=== PATIENT | male | born 1950 | race Caucasian/White ===

== ENCOUNTER → 2016-07-18 | Outpatient (CLI) | payer MEDICARE, OTHER ==
[2016-07-18 10:48] LABS: CHLORIDE,CL 106 mmol/L (98-110); SODIUM,NA 142 mmol/L (136-146)
== END ==
LOC: MW.CHFP 09:41
PROVIDERS: ATTEND Student in an Organized Health Care Education/Training Program
DX: I10 Essential (primary) hypertension (principal); F41.8 Other specified anxiety disorders; J44.9 Chronic obstructive pulmonary disease, unspecified; Z87.891 Personal history of nicotine dependence
CPT/HCPCS: 36415; 80053; 80061; G0463

== ENCOUNTER 2017-03-10 10:42 | Emergency (ER) | payer MEDICARE, OTHER ==
[2017-03-10] MEDS ORDERED: Sodium Chloride 0.9% 2.5 ML Syringe FLUSH PRN (10:54)
[2017-03-10] MEDS ORDERED: Sodium Chloride 0.9% 10 ML Syringe FLUSH PRN (10:54)
[2017-03-10] MEDS ORDERED: Albuterol/Ipratropium 3.0-0.5 MG/3 ML Neb Soln NEB ONE ×2 (10:57→12:10)
[2017-03-10] MEDS ORDERED: Sodium Chloride 0.9% 1,000 ML IV ONE (10:57)
[2017-03-10] MEDS ORDERED: methylPREDNISolone Sodium Succinate 125 MG/2 ML SDV IVPUSH ONE (11:13)
[2017-03-10 11:53] LABS: CHLORIDE,CL 99 mmol/L (98-110); SODIUM,NA 138 mmol/L (136-146)
--- NOTE | 2017-03-10 11:55 | CR ---
EXAMINATION: Portable chest radiograph. HISTORY: Shortness of breath. FINDINGS: The trachea is midline. The cardiomediastinal silhouette is within normal limits. No pulmonary infilt rates, effusions or pneumothorax. Chronic interstitial prominence and hyperinflation. There is a vagu e subcentimeter nodular right mid to lower lung which is likely present in the prior radiographs. Osseous structures appear unremarkable. IMPRESSION: No acute cardiopulmonary process..
--- NOTE | 2017-03-10 12:44 | EDM.PDOC ---
ED HPI GENERAL MEDICAL PROBLEM - General Chief Complaint: Respiratory Problem Stated Complaint: BREATHING ISSUES Time Seen by Provider: 03/10/17 10:59 Source of Information: Reports: Patient, Family History Limitations: Reports: No Limitations - History of Present Illness INITIAL COMMENTS - FREE TEXT/NARRATIVE: HISTORY AND PHYSICAL: 67-year-old male presenting with COPD exacerbation History of Present Illness: []Today is Monday he was at his providers and received an injection or worsening of his breathing. He states he is not improved since then and today is worse. Review of Systems: As per history of present illness and below otherwise all systems reviewed and negative. Past medical history: As per history of present illness and as reviewed below otherwise noncontributory. Surgical history: As per history of present illness and as reviewed below otherwise noncontributory. Social history: No reported history of drug or alcohol abuse. Family history: As per history of present illness and as reviewed below otherwise noncontributory. Physical exam: Alert and oriented male whose mouth per slip breathing. Using his abdominal muscles to help.. Is able to speak in about 3 word sentences. He has been short of breath is present. HEENT: Atraumatic, normocehpalic, pupils reactive, negative for conjunctival pallor or scleral icterus, mucous membranes moist, throat clear, neck supple, nontender, trachea midline. Lungs: Wheezing on auscultation, breath sounds equal bilaterally, chest non tender. Poor inspiratory expiratory effort is appreciated. Heart: S1S2, regular, negative for clicks, rubs, or JVD. Abdomen: Soft, nondistended, nontender. Negative for masses or hepatossplenmegaly. Negative for costovertebral tenderness. Pelvis: Stable nontender. Genitourinary: Deferred. Rectal: Deferred Extremities: Atraumatic, negative for cords or calf pain. Neurovascular unremarkable. Neuro: Awake, alert, oriented. Cranial nerves II through XII unremarkable. Cerebellum unremarkable. Motor and sensory unremarkable throughout. Exam nonfocal. Patient has improved with the 2 nebulizer treatments or calf and in the Solu- Medrol IV. Discussed COPD and it's indications the progression of this disease. Discussed with your primary care provider perhaps pulmonary rehabilitation may be of benefit Patient is quite shaky after his 2 DuoNeb and is reluctant to take albuterol at home trial with the Xopenex Diagnostics: [Chest x-ray CBC CMP] Therapeutics: [IV fluids 1 L Solu-Medrol 125 IV DuoNeb 2] Impression: [COPD exacerbation] Plan: []Discharged home Xopenex per prescription Nebulizer machine Follow-up as scheduled with your primary care provider March 21 Definitive disposition and diagnosis as appropriate pending reevaluation and review of above. Onset: Gradual Duration: Day(s): Location: Reports: Chest - Related Data Allergies Allergy/AdvReac Type Severity Reaction Status Date / Time clarithromycin [From Biaxin] Allergy Other Verified 03/10/17 10:51 codeine Allergy Other Verified 03/10/17 10:51 levofloxacin [From Levaquin] Allergy Other Verified 03/10/17 10:51 lisinopril Allergy Other Verified 03/10/17 10:51 morphine Allergy Other Verified 03/10/17 10:51 Home Meds: Home Meds Fluticasone/Salmeterol [Advair Hfa 230-21 Mcg Inhaler] 2 puff IN DAILY 03/10/17 [History] LORazepam [Ativan] 0.5 mg PO BID 03/10/17 [History] Levalbuterol HCl [Xopenex] 0.63 mg NEB Q4HRRT #1 box 03/10/17 [Rx] Losartan [Cozaar] 50 mg PO DAILY 03/10/17 [History] PARoxetine HCl [Paroxetine HCl] 20 mg PO TID 03/10/17 [History] Past Medical History Respiratory History: Reports: COPD Psychiatric History: Reports: Anxiety Social & Family History - Family History Family Medical History: Noncontributory - Tobacco Use Smoking Status *Q: Current Every Day Smoker Years of Tobacco use: 45 Packs/Tins Daily: 0.5 Second Hand Smoke Exposure: Yes - Caffeine Use Caffeine Use: Reports: Energy Drinks - Recreational Drug Use Recreational Drug Use: No ED ROS GENERAL - Review of Systems Review Of Systems: ROS reveals no pertinent complaints other than HPI. ED EXAM, GENERAL - Physical Exam Exam: See Below (See dictation) EKG INTERPRETATION EKG Date: 03/10/17 Rhythm: Other (Sinus tachycardia) Course - Vital Signs Last Recorded V/S: Last Vital Signs Temp 36.2 C 03/10/17 10:57 Pulse 133 H 03/10/17 10:57 Resp 22 H 03/10/17 11:26 BP 174/110 H 03/10/17 11:26 Pulse Ox 95 03/10/17 11:26 - Orders/Labs/Meds Orders: Active Orders 24 hr Category Date Time Status Cardiac Monitoring [RC] . DIRECTED Care 03/10/17 10:54 Active EKG Documentation Completion [RC] STAT Care 03/10/17 10:54 Active Oxygen Therapy, ED [RC] ASDIRECTED Care 03/10/17 10:54 Active RT Aerosol Therapy [RC] ASDIRECTED Care 03/10/17 10:57 Active RT Aerosol Therapy [RC] ASDIRECTED Care 03/10/17 12:11 Active CULTURE BLOOD [BC] Stat Lab 03/10/17 11:14 Received CULTURE BLOOD [BC] Stat Lab 03/10/17 11:49 Received Sodium Chloride 0.9% [Saline Flush] Med 03/10/17 10:54 Active 10 ml FLUSH ASDIRECTED PRN Sodium Chloride 0.9% [Saline Flush] Med 03/10/17 10:54 Active 2.5 ml FLUSH ASDIRECTED PRN Blood Culture x2 Reflex Set [OM.PC] Stat Oth 03/10/17 10:55 Ordered Saline Lock Insert [OM.PC] Stat Oth 03/10/17 10:54 Ordered Medication Orders Sodium Chloride (Saline Flush) 10 ml FLUSH ASDIRECTED PRN PRN Reason: Keep Vein Open Sodium Chloride (Saline Flush) 2.5 ml FLUSH ASDIRECTED PRN PRN Reason: Keep Vein Open Labs: Laboratory Tests 03/10/17 03/10/17 Range/Units 11:14 11:14 WBC 9.89 (4.0-11.0) K/uL RBC 5.20 (4.50-5.90) M/uL Hgb 16.7 (13.0-17.0) g/dL Hct 49.1 (38.0-50.0) % MCV 94.4 (80.0-98.0) fL MCH 32.1 H (27.0-32.0) pg MCHC 34.0 (31.0-37.0) g/dL RDW Std Deviation 46.8 (28.0-62.0) fl RDW Coeff of Charly 14 (11.0-15.0) % Plt Count 371 (150-400) K/uL MPV 10.10 (7.40-12.00) fL Neut % (Auto) 75.1 (48.0-80.0) % Lymph % (Auto) 9.0 L (16.0-40.0) % Steele % (Auto) 15.0 (0.0-15.0) % Eos % (Auto) 0.7 (0.0-7.0) % Baso % (Auto) 0.2 (0.0-1.5) % Neut # (Auto) 7.4 H (1.4-5.7) K/uL Lymph # (Auto) 0.9 (0.6-2.4) K/uL Steele # (Auto) 1.5 H (0.0-0.8) K/uL Eos # (Auto) 0.1 (0.0-0.7) K/uL Baso # (Auto) 0.0 (0.0-0.1) K/uL Nucleated RBC % 0.0 /100WBC Nucleated RBCs # 0 K/uL Sodium 138 (136-146) mmol/L Potassium 4.1 (3.5-5.1) mmol/L Chloride 99 (98-110) mmol/L Carbon Dioxide 27 (21-31) mmol/L BUN 20 (6.0-23.0) mg/dL Creatinine 1.1 (0.6-1.5) mg/dL Est Cr Clr Drug Dosing TNP Estimated GFR (MDRD) > 60.0 ml/min Glucose 165 H (60-110) mg/dL Calcium 9.8 (8.8-10.8) mg/dL Total Bilirubin 0.5 (0.1-1.5) mg/dL AST 22 (5-40) IU/L ALT 19 (8-54) IU/L Alkaline Phosphatase 48 (40-150) Troponin I < 0.10 (0.0-0.29) NG/ML Total Protein 7.6 (6.0-8.0) g/dL Albumin 4.2 (3.4-4.8) g/dL Globulin 3.4 (2.0-3.5) g/dL Albumin/Globulin Ratio 1.2 L (1.3-2.8) Meds: Medications Generic Name Dose Route Start Last Admin Trade Name Freq PRN Reason Stop Dose Admin Sodium Chloride 10 ml 11/24/17 10:54 Saline Flush FLUSH ASDIRECTED PRN Keep Vein Open Sodium Chloride 2.5 ml 03/10/17 10:54 Saline Flush FLUSH ASDIRECTED PRN Keep Vein Open Discontinued Medications Generic Name Dose Route Start Last Admin Trade Name Freq PRN Reason Stop Dose Admin Albuterol/Ipratropium 3 ml 03/10/17 10:57 03/10/17 11:10 Duoneb 3.0-0.5 Mg/3 Ml NEB 03/10/17 10:58 3 ml ONETIME ONE Administration Albuterol/Ipratropium 3 ml 03/10/17 12:10 03/10/17 12:27 Duoneb 3.0-0.5 Mg/3 Ml NEB 03/10/17 12:11 3 ml ONETIME ONE Administration Sodium Chloride 1,000 mls @ 999 mls/hr 03/10/17 10:57 03/10/17 11:20 Normal Saline IV 03/10/17 11:57 999 mls/hr STAT ONE Administration Methylprednisolone Sodium Succinate 125 mg 03/10/17 11:13 03/10/17 11:52 Solu-Medrol IVPUSH 03/10/17 11:14 125 mg ONETIME ONE Administration Departure - Departure Time of Disposition: 12:43 Disposition: Home, Self-Care 01 Condition: Good Clinical Impression: COPD with exacerbation - Discharge Information Prescriptions: Levalbuterol HCl [Xopenex] 0.63 mg NEB Q4HRRT #1 box Referrals: PCP,Unknown [Primary Care Provider] - Additional Instructions: The following information is given to patients seen in the emergency department who are being discharged to home. This information is to outline your options for follow-up care. We provide all patients seen in our emergency department with a follow-up referral. The need for follow-up, as well as the timing and circumstances, are variable depending upon the specifics of your emergency department visit. If you don't have a primary care physician on staff, we will provide you with a referral. We always advise you to contact your personal physician following an emergency department visit to inform them of the circumstance of the visit and for follow-up with them and/or the need for any referrals to a consulting specialist. The emergency department will also refer you to a specialist when appropriate. This referral assures that you have the opportunity for followup care with a specialist. All of these measure are taken in an effort to provide you with optimal care, which includes your followup. Under all circumstances we always encourage you to contact your private physician who remains a resource for coordinating your care. When calling for followup care, please make the office aware that this follow-up is from your recent emergency room visit. If for any reason you are refused follow-up, please contact the [facility] emergency department at and asked to speak to the emergency department charge nurse. Prescription for has been electronically sent for Xopenex to the service drug Prescription for nebulizer machine has been faxed to [facility] need to pick this up Follow up as scheduled with your primary care provider Discussed with your primary care provider pulmonary rehabilitation services - My Orders Last 24 Hours: My Active Orders 03/10/17 10:54 Cardiac Monitoring [RC] . DIRECTED EKG Documentation Completion [RC] STAT Oxygen Therapy, ED [RC] ASDIRECTED Sodium Chloride 0.9% [Saline Flush] 10 ml FLUSH ASDIRECTED PRN Sodium Chloride 0.9% [Saline Flush] 2.5 ml FLUSH ASDIRECTED PRN Saline Lock Insert [OM.PC] Stat 03/10/17 10:55 Blood Culture x2 Reflex Set [OM.PC] Stat 03/10/17 10:57 RT Aerosol Therapy [RC] ASDIRECTED 03/10/17 11:14 CULTURE BLOOD [BC] Stat 03/10/17 11:49 CULTURE BLOOD [BC] Stat 03/10/17 12:11 RT Aerosol Therapy [RC] ASDIRECTED - Assessment/Plan Last 24 Hours: My Active Orders 03/10/17 10:54 Cardiac Monitoring [RC] . DIRECTED EKG Documentation Completion [RC] STAT Oxygen Therapy, ED [RC] ASDIRECTED Sodium Chloride 0.9% [Saline Flush] 10 ml FLUSH ASDIRECTED PRN Sodium Chloride 0.9% [Saline Flush] 2.5 ml FLUSH ASDIRECTED PRN Saline Lock Insert [OM.PC] Stat 03/10/17 10:55 Blood Culture x2 Reflex Set [OM.PC] Stat 03/10/17 10:57 RT Aerosol Therapy [RC] ASDIRECTED 03/10/17 11:14 CULTURE BLOOD [BC] Stat 03/10/17 11:49 CULTURE BLOOD [BC] Stat 03/10/17 12:11 RT Aerosol Therapy [RC] ASDIRECTED
== END 2017-03-10 13:05 | disposition home or self-care (01) ==
LOC: MW.ED 10:42
DX: J44.1 Chronic obstructive pulmonary disease with (acute) exacerbation (principal); F41.9 Anxiety disorder, unspecified; F17.210 Nicotine dependence, cigarettes, uncomplicated; Z79.899 Other long term (current) drug therapy; Z88.1 Allergy status to other antibiotic agents; Z88.5 Allergy status to narcotic agent; Z88.8 Allergy status to other drugs, medicaments and biological substances
CPT/HCPCS: 36415; 71010; 80053; 84484; 85025; 87040; 93005; 94640; 96361; 96374; 99285; J2930; J7040; 87077; 87186; 99283

== ENCOUNTER 2017-03-11 12:53 | Emergency (ER) | payer MEDICARE, OTHER ==
[2017-03-11] MEDS ORDERED: Meclizine 25 MG Tab PO ONE (13:02)
[2017-03-11] MEDS ORDERED: Ondansetron 4 MG/2 ML SDV IVPUSH ONE (13:02)
[2017-03-11] MEDS ORDERED: Sodium Chloride 0.9% 10 ML Syringe FLUSH PRN (14:08)
[2017-03-11] MEDS ORDERED: Levofloxacin/Dextrose 5%-Water 750 MG in Premix Bag 1 BAG IV ONE (14:08)
[2017-03-11] MEDS ORDERED: Sodium Chloride 0.9% 2.5 ML Syringe FLUSH PRN (14:08)
--- NOTE | 2017-03-11 14:09 | EDM.PDOC ---
ED HPI GENERAL MEDICAL PROBLEM - General Chief Complaint: Respiratory Problem Stated Complaint: UNK Time Seen by Provider: 03/11/17 13:13 Source of Information: Reports: Patient History Limitations: Reports: No Limitations - History of Present Illness INITIAL COMMENTS - FREE TEXT/NARRATIVE: HISTORY AND PHYSICAL: []67-year-old male presenting with lab results History of Present Illness: []Patient was called due to positive gram cocci in his blood culture he is returning for blood work to be reevaluated Review of Systems: As per history of present illness and below otherwise all systems reviewed and negative. Past medical history: As per history of present illness and as reviewed below otherwise noncontributory. Surgical history: As per history of present illness and as reviewed below otherwise noncontributory. Social history: No reported history of drug or alcohol abuse. Family history: As per history of present illness and as reviewed below otherwise noncontributory. Physical exam: Alert and active male who has COPD exacerbation yesterday has improved with the nebulizer that he was sent home with. His abdomen able to answer questions in full sentences without severe shortness of breath. HEENT: Atraumatic, normocehpalic, pupils reactive, negative for conjunctival pallor or scleral icterus, mucous membranes moist, throat clear, neck supple, nontender, trachea midline. Lungs: Clear to auscultation, breath sounds equal bilaterally, chest non tender. Heart: S1S2, regular, negative for clicks, rubs, or JVD. Abdomen: Soft, nondistended, nontender. Negative for masses or hepatossplenmegaly. Negative for costovertebral tenderness. Pelvis: Stable nontender. Genitourinary: Deferred. Rectal: Deferred Extremities: Atraumatic, negative for cords or calf pain. Neurovascular unremarkable. Neuro: Awake, alert, oriented. Cranial nerves II through XII unremarkable. Cerebellum unremarkable. Motor and sensory unremarkable throughout. Exam nonfocal. Patient has just elevated white count of 15.5. Have discussed this case with Dr. Hull and he also recommends that patient be observed. Discussion of this case occurred with the hospitalist who does not agree that the patient should be kept in the hospital and can be managed on an outpatient basis. She has suggested the Bactrim DS twice daily a week. Patient has preferred to be treated on outpatient basis. Diagnostics: [CBC CMP lactic acid repeat blood cultures 2] Therapeutics: [IV fluid Vancomycin ] Impression: [Bacteremia COPD ] Plan: Discharged to home Bactrim DS 1 twice a day 7 days Follow-up in 2 days with your primary care provider for reevaluation If worsening of symptoms occurs prior to your being reevaluated return to the emergency department[] Definitive disposition and diagnosis as appropriate pending reevaluation and review of above. Onset: Gradual Duration: Day(s): Location: Reports: Chest - Related Data Allergies Allergy/AdvReac Type Severity Reaction Status Date / Time clarithromycin [From Biaxin] Allergy Other Verified 03/11/17 13:05 codeine Allergy Other Verified 03/11/17 13:05 levofloxacin [From Levaquin] Allergy Other Verified 03/11/17 13:05 lisinopril Allergy Other Verified 03/11/17 13:05 morphine Allergy Other Verified 03/11/17 13:05 Home Meds: Home Meds Fluticasone/Salmeterol [Advair Hfa 230-21 Mcg Inhaler] 2 puff IN DAILY 03/10/17 [History] Levalbuterol HCl [Xopenex] 0.63 mg NEB Q4HRRT #1 box 03/10/17 [Rx] Losartan [Cozaar] 50 mg PO BID 03/10/17 [History] PARoxetine HCl [Paroxetine HCl] 20 mg PO TID 03/10/17 [History] LORazepam [Ativan] 1 mg PO BID 03/11/17 [History] Sulfamethoxazole/Trimethoprim [Bactrim Ds Tablet] 1 each PO BID #14 tablet 03/11 [Rx] Past Medical History Respiratory History: Reports: COPD Psychiatric History: Reports: Anxiety Social & Family History - Family History Family Medical History: Noncontributory - Tobacco Use Smoking Status *Q: Former Smoker Years of Tobacco use: 45 Packs/Tins Daily: 0.5 Used Tobacco, but Quit: Yes Month Tobacco Last Used: 2012 Second Hand Smoke Exposure: Yes - Caffeine Use Caffeine Use: Reports: None - Recreational Drug Use Recreational Drug Use: No ED ROS GENERAL - Review of Systems Review Of Systems: ROS reveals no pertinent complaints other than HPI. ED EXAM, GENERAL - Physical Exam Exam: See Below (see dictation) Course - Vital Signs Last Recorded V/S: Last Vital Signs Temp 36.6 C 03/11/17 13:00 Pulse 103 H 03/11/17 15:09 Resp 18 03/11/17 15:09 BP 140/102 H 03/11/17 16:02 Pulse Ox 96 03/11/17 15:09 - Orders/Labs/Meds Orders: Active Orders 24 hr Category Date Time Status EKG Documentation Completion [RC] STAT Care 03/11/17 13:01 Inactive CULTURE BLOOD [BC] Stat Lab 03/11/17 14:43 Results CULTURE BLOOD [BC] Stat Lab 03/11/17 14:48 Received Sodium Chloride 0.9% [Normal Saline] 1,000 ml Med 03/11/17 15:52 Active IV NOW Sodium Chloride 0.9% [Normal Saline] 500 ml Med 03/11/17 15:49 Active IV NOW Sodium Chloride 0.9% [Saline Flush] Med 03/11/17 14:08 Active 10 ml FLUSH ASDIRECTED PRN Sodium Chloride 0.9% [Saline Flush] Med 03/11/17 14:08 Active 2.5 ml FLUSH ASDIRECTED PRN Blood Culture x2 Reflex Set [OM.PC] Stat Oth 03/11/17 14:33 Ordered Saline Lock Insert [OM.PC] Stat Oth 03/11/17 14:08 Ordered Medication Orders Sodium Chloride (Normal Saline) 500 mls @ 125 mls/hr IV NOW STA Stop: 03/11/17 19:48 Last Admin: 03/11/17 15:53 Dose: Not Given Sodium Chloride (Normal Saline) 1,000 mls @ 125 mls/hr IV NOW STA Stop: 03/11/17 23:51 Last Admin: 03/11/17 15:48 Dose: 125 mls/hr Sodium Chloride (Saline Flush) 10 ml FLUSH ASDIRECTED PRN PRN Reason: Keep Vein Open Sodium Chloride (Saline Flush) 2.5 ml FLUSH ASDIRECTED PRN PRN Reason: Keep Vein Open Labs: Laboratory Tests 03/11/17 03/11/17 03/11/17 Range/Units 13:13 13:13 13:13 WBC 15.53 H (4.0-11.0) K/uL RBC 4.82 (4.50-5.90) M/uL Hgb 15.4 (13.0-17.0) g/dL Hct 46.0 (38.0-50.0) % MCV 95.4 (80.0-98.0) fL MCH 32.0 (27.0-32.0) pg MCHC 33.5 (31.0-37.0) g/dL RDW Std Deviation 46.5 (28.0-62.0) fl RDW Coeff of Charly 13 (11.0-15.0) % Plt Count 381 (150-400) K/uL MPV 10.10 (7.40-12.00) fL Neut % (Auto) 77.2 (48.0-80.0) % Lymph % (Auto) 12.0 L (16.0-40.0) % [place] % (Auto) 10.2 (0.0-15.0) % Eos % (Auto) 0.5 (0.0-7.0) % Baso % (Auto) 0.1 (0.0-1.5) % Neut # (Auto) 12.0 H (1.4-5.7) K/uL Lymph # (Auto) 1.9 (0.6-2.4) K/uL [place] # (Auto) 1.6 H (0.0-0.8) K/uL Eos # (Auto) 0.1 (0.0-0.7) K/uL Baso # (Auto) 0.0 (0.0-0.1) K/uL Nucleated RBC % 0.0 /100WBC Nucleated RBCs # 0 K/uL INR 0.94 (0.86-1.11) D-Dimer, Quantitative 0.29 (0.0-0.52) mg/LFEU Lactate (0.20-2.00) mmol/L Sodium (136-146) mmol/L Potassium (3.5-5.1) mmol/L Chloride (98-110) mmol/L Carbon Dioxide (21-31) mmol/L BUN (6.0-23.0) mg/dL Creatinine (0.6-1.5) mg/dL Est Cr Clr Drug Dosing mL/min Estimated GFR (MDRD) ml/min Glucose (60-110) mg/dL Calcium (8.8-10.8) mg/dL Total Bilirubin (0.1-1.5) mg/dL AST (5-40) IU/L ALT (8-54) IU/L Alkaline Phosphatase (40-150) Troponin I < 0.10 (0.0-0.29) NG/ML Total Protein (6.0-8.0) g/dL Albumin (3.4-4.8) g/dL Globulin (2.0-3.5) g/dL Albumin/Globulin Ratio (1.3-2.8) 03/11/17 03/11/17 Range/Units 13:13 13:13 WBC (4.0-11.0) K/uL RBC (4.50-5.90) M/uL Hgb (13.0-17.0) g/dL Hct (38.0-50.0) % MCV (80.0-98.0) fL MCH (27.0-32.0) pg MCHC (31.0-37.0) g/dL RDW Std Deviation (28.0-62.0) fl RDW Coeff of Charly (11.0-15.0) % Plt Count (150-400) K/uL MPV (7.40-12.00) fL Neut % (Auto) (48.0-80.0) % Lymph % (Auto) (16.0-40.0) % [place] % (Auto) (0.0-15.0) % Eos % (Auto) (0.0-7.0) % Baso % (Auto) (0.0-1.5) % Neut # (Auto) (1.4-5.7) K/uL Lymph # (Auto) (0.6-2.4) K/uL [place] # (Auto) (0.0-0.8) K/uL Eos # (Auto) (0.0-0.7) K/uL Baso # (Auto) (0.0-0.1) K/uL Nucleated RBC % /100WBC Nucleated RBCs # K/uL INR (0.86-1.11) D-Dimer, Quantitative (0.0-0.52) mg/LFEU Lactate 1.7 (0.20-2.00) mmol/L Sodium 137 (136-146) mmol/L Potassium 3.8 (3.5-5.1) mmol/L Chloride 101 (98-110) mmol/L Carbon Dioxide 26 (21-31) mmol/L BUN 20 (6.0-23.0) mg/dL Creatinine 1.0 (0.6-1.5) mg/dL Est Cr Clr Drug Dosing 73.51 mL/min Estimated GFR (MDRD) > 60.0 ml/min Glucose 131 H (60-110) mg/dL Calcium 9.3 (8.8-10.8) mg/dL Total Bilirubin 0.3 (0.1-1.5) mg/dL AST 21 (5-40) IU/L ALT 23 (8-54) IU/L Alkaline Phosphatase 40 (40-150) Troponin I (0.0-0.29) NG/ML Total Protein 7.0 (6.0-8.0) g/dL Albumin 3.9 (3.4-4.8) g/dL Globulin 3.1 (2.0-3.5) g/dL Albumin/Globulin Ratio 1.3 (1.3-2.8) Meds: Medications Generic Name Dose Route Start Last Admin Trade Name Freq PRN Reason Stop Dose Admin Sodium Chloride 500 mls @ 125 mls/hr 03/11/17 15:49 03/11/17 15:53 Normal Saline IV 03/11/17 19:48 Not Given NOW STA Sodium Chloride 1,000 mls @ 125 mls/hr 03/11/17 15:52 03/11/17 15:48 Normal Saline IV 03/11/17 23:51 125 mls/hr NOW STA Administration Sodium Chloride 10 ml 03/11/17 14:08 Saline Flush FLUSH ASDIRECTED PRN Keep Vein Open Sodium Chloride 2.5 ml 03/11/17 14:08 Saline Flush FLUSH ASDIRECTED PRN Keep Vein Open Discontinued Medications Generic Name Dose Route Start Last Admin Trade Name Freq PRN Reason Stop Dose Admin Levofloxacin/Dextrose 750 mg/ 150 mls @ 100 mls/hr 03/11/17 14:08 Premix IV 03/11/17 15:37 ONETIME ONE Piperacillin Sod/Tazobactam 50 mls @ 100 mls/hr 03/11/17 14:36 03/11/17 15:08 Sod 3.375 gm/ Sodium Chloride IV 03/11/17 15:05 100 mls/hr ONETIME ONE Administration Vancomycin HCl 1 gm/ Sodium 250 mls @ 250 mls/hr 03/11/17 14:47 03/11/17 15: 47 Chloride IV 03/11/17 15:46 250 mls/hr ONETIME ONE Administration Sodium Chloride 1,000 mls @ 999 mls/hr 03/11/17 14:47 03/11/17 14:58 Normal Saline IV 03/11/17 15:47 999 mls/hr STAT ONE Administration Lorazepam 1 mg 03/11/17 15:49 03/11/17 15:56 Ativan PO 03/11/17 15:50 1 mg ONETIME ONE Administration Losartan Potassium 50 mg 03/11/17 15:43 03/11/17 16:02 Cozaar PO 03/11/17 15:44 50 mg ONETIME ONE Administration Departure - Departure Time of Disposition: 16:10 Disposition: Home, Self-Care 01 Condition: Good Clinical Impression: Bacteremia COPD (chronic obstructive pulmonary disease) Qualifiers: COPD type: chronic bronchitis - Discharge Information Prescriptions: Sulfamethoxazole/Trimethoprim [Bactrim Ds Tablet] 1 each PO BID #14 tablet Referrals: PCP,Unknown [Primary Care Provider] - Forms: ED Department Discharge Additional Instructions: The following information is given to patients seen in the emergency department who are being discharged to home. This information is to outline your options for follow-up care. We provide all patients seen in our emergency department with a follow-up referral. The need for follow-up, as well as the timing and circumstances, are variable depending upon the specifics of your emergency department visit. If you don't have a primary care physician on staff, we will provide you with a referral. We always advise you to contact your personal physician following an emergency department visit to inform them of the circumstance of the visit and for follow-up with them and/or the need for any referrals to a consulting specialist. The emergency department will also refer you to a specialist when appropriate. This referral assures that you have the opportunity for followup care with a specialist. All of these measure are taken in an effort to provide you with optimal care, which includes your followup. Under all circumstances we always encourage you to contact your private physician who remains a resource for coordinating your care. When calling for followup care, please make the office aware that this follow-up is from your recent emergency room visit. If for any reason you are refused follow-up, please contact the [facility] emergency department at and asked to speak to the emergency department charge nurse. Been given a prescription for Bactrim DS 1 tablet twice a day for the next week He will need to be followed up in the next 2 days by her primary care provider Call Monday and say he was seen in the emergency room and needs reevaluation Worsening of symptoms and need to be reevaluated emergency room if this occurs before your reevaluation appointment - My Orders Last 24 Hours: My Active Orders 03/11/17 14:08 Sodium Chloride 0.9% [Saline Flush] 10 ml FLUSH ASDIRECTED PRN Sodium Chloride 0.9% [Saline Flush] 2.5 ml FLUSH ASDIRECTED PRN Saline Lock Insert [OM.PC] Stat 03/11/17 14:33 Blood Culture x2 Reflex Set [OM.PC] Stat 03/11/17 14:43 CULTURE BLOOD [BC] Stat 03/11/17 14:48 CULTURE BLOOD [BC] Stat 03/11/17 15:49 Sodium Chloride 0.9% [Normal Saline] 500 ml IV NOW 03/11/17 15:52 Sodium Chloride 0.9% [Normal Saline] 1,000 ml IV NOW - Assessment/Plan Last 24 Hours: My Active Orders 03/11/17 14:08 Sodium Chloride 0.9% [Saline Flush] 10 ml FLUSH ASDIRECTED PRN Sodium Chloride 0.9% [Saline Flush] 2.5 ml FLUSH ASDIRECTED PRN Saline Lock Insert [OM.PC] Stat 03/11/17 14:33 Blood Culture x2 Reflex Set [OM.PC] Stat 03/11/17 14:43 CULTURE BLOOD [BC] Stat 03/11/17 14:48 CULTURE BLOOD [BC] Stat 03/11/17 15:49 Sodium Chloride 0.9% [Normal Saline] 500 ml IV NOW 03/11/17 15:52 Sodium Chloride 0.9% [Normal Saline] 1,000 ml IV NOW
[2017-03-11 14:15] LABS: CHLORIDE,CL 101 mmol/L (98-110); SODIUM,NA 137 mmol/L (136-146)
[2017-03-11] MEDS ORDERED: Piperacillin/Tazobactam 3.375 GM in Sodium Chloride 0.9% 50 ML IV ONE (14:36)
[2017-03-11] MEDS ORDERED: Sodium Chloride 0.9% 1,000 ML IV ONE ×2 (14:47→15:43)
[2017-03-11] MEDS ORDERED: Losartan 50 MG Tab PO ONE (15:43)
[2017-03-11] MEDS ORDERED: LORazepam 1 MG Tab PO ONE (15:49)
[2017-03-11] MEDS ORDERED: Sodium Chloride 0.9% 500 ML IV STA (15:49)
[2017-03-11] MEDS ORDERED: Sodium Chloride 0.9% 1,000 ML IV STA (15:52)
== END 2017-03-11 17:28 | disposition home or self-care (01) ==
LOC: MW.ED 12:53
DX: R78.81 Bacteremia (principal); J44.9 Chronic obstructive pulmonary disease, unspecified; Z88.5 Allergy status to narcotic agent; Z88.1 Allergy status to other antibiotic agents; Z87.891 Personal history of nicotine dependence; Z79.899 Other long term (current) drug therapy
CPT/HCPCS: 36415; 80053; 83605; 84484; 85025; 85379; 85610; 87040; 96365; 96367; 99284; A9270; J2543; J3370; J7040; J7050; 99282

== ENCOUNTER 2017-07-18 14:53 | Emergency (ER) | payer MEDICARE, OTHER ==
--- NOTE | 2017-07-18 15:23 | EDM.PDOC ---
ED HPI GENERAL MEDICAL PROBLEM - General Chief Complaint: Cardiovascular Problem Stated Complaint: SHORTNESS OF BREATH, RACING HEART Time Seen by Provider: 07/18/17 15:00 Source of Information: Reports: Patient History Limitations: Reports: No Limitations - History of Present Illness INITIAL COMMENTS - FREE TEXT/NARRATIVE: HISTORY AND PHYSICAL: History of present illness: [Patient comes to the emergency room complaining of not feeling well for the past week. Feels dizzy, heart racing, cough, body aches. Had a new furnace put in at the end of April and questions if his symptoms may be related. His also presents today with similar symptoms. He is been recently diagnosed with lung cancer and has been undergoing radiation treatments under the care of Dr. Hollingsworth. Long history of COPD and he continues to smoke a pack a day. No fever or chills. Denies pain in his chest. Complains of more labored and difficulty breathing than usual. No new or worsening cough. Denies abdominal pain nausea and vomiting. No change to bowel or bladder. Denies swelling in his feet and lower legs. No change with ambulation. Denies confusion. Follows regularly with Dr. Meadows.] Review of systems: As per history of present illness and below otherwise all systems reviewed and negative. Past medical history: As per history of present illness and as reviewed below otherwise noncontributory. Surgical history: As per history of present illness and as reviewed below otherwise noncontributory. Social history: No reported history of drug or alcohol abuse. Family history: As per history of present illness and as reviewed below otherwise noncontributory. Physical exam: Gen.: Well-developed male in no acute distress. Smells heavily of cigarette smoke. HEENT: Atraumatic, normocephalic. Oral mucous membranes are pink and slightly dry. Neck supple, no lymphadenopathy. No JVD noted. Lungs: Wheezing is appreciated throughout all lung [place], breath sounds equal bilaterally. Heart: S1S2, regular rhythm, rate 130. Abdomen: Bowel sounds are normoactive throughout. Soft, nondistended, nontender. Negative for masses, guarding and rebound. Negative for costovertebral tenderness. Pelvis: Stable nontender. Genitourinary: Deferred. Rectal: Deferred. Extremities: Atraumatic, negative for cords or calf pain. Swelling or cyanosis to feet or lower legs. Neurovascular unremarkable. Neuro: Awake, alert, oriented. Motor and sensory unremarkable throughout. Exam nonfocal. Psych: Appears mildly anxious. Diagnostics: [CBC, CMP, UA, carboxyhemoglobin, urine drug screen, troponin, influenza swab, chest x-ray, EKG] Therapeutics: [1 liter LR at 500mL/hour] Impression: [tachycardia COPD lung CA] Plan: [EKG shows sinus tachycardia with a rate of 121. No acute findings or ST changes. Discussed with patient that his lab results are completely unremarkable. He states that he is out of his anti-anxiety medication that is prescribed by his PCP. He's been advised to take this medication when his heart rate is high. Thinks that he may have run out early. Encouraged him to call Dr. Meadows's office to discuss. ] Definitive disposition and diagnosis as appropriate pending reevaluation and review of above. - Related Data Allergies Allergy/AdvReac Type Severity Reaction Status Date / Time clarithromycin [From Biaxin] Allergy Other Verified 07/18/17 15:12 codeine Allergy Other Verified 07/18/17 15:12 levofloxacin [From Levaquin] Allergy Other Verified 07/18/17 15:12 lisinopril Allergy Other Verified 07/18/17 15:12 morphine Allergy Other Verified 07/18/17 15:12 Home Meds: Home Meds Levalbuterol HCl [Xopenex] 0.63 mg NEB Q4HRRT #1 box 03/10/17 [Rx] Losartan [Cozaar] 50 mg PO BID 03/10/17 [History] PARoxetine HCl [Paroxetine HCl] 20 mg PO TID 03/10/17 [History] Acetaminophen/HYDROcodone [[place] 325-5 MG] 1 tab PO Q4HR PRN 07/18/17 [History] Diclofenac Sodium [Voltaren] 75 mg PO ASDIRECTED 07/18/17 [History] Fluticasone/Vilanterol [Breo Ellipta 200-25 Mcg INH] 1 dose INH DAILY 07/18/17 [ History] Past Medical History Cardiovascular History: Reports: Hypertension Respiratory History: Reports: COPD, Other (See Below) Other Respiratory History: lung CA Psychiatric History: Reports: Anxiety Oncologic (Cancer) History: Reports: Lung - Infectious Disease History Infectious Disease History: Reports: Chicken Pox, Measles, Mumps Social & Family History - Family History Family Medical History: Noncontributory - Tobacco Use Smoking Status *Q: Current Every Day Smoker Years of Tobacco use: 40 Packs/Tins Daily: 0.7 Used Tobacco, but Quit: Yes Month/Year Tobacco Last Used: 2012 Second Hand Smoke Exposure: Yes - Caffeine Use Caffeine Use: Reports: None - Recreational Drug Use Recreational Drug Use: No ED ROS GENERAL - Review of Systems Review Of Systems: ROS reveals no pertinent complaints other than HPI. ED EXAM, GENERAL - Physical Exam Exam: See Below Course - Vital Signs Last Recorded V/S: Last Vital Signs Temp 98.3 F 07/18/17 15:07 Pulse 130 H 07/18/17 15:07 Resp 22 H 07/18/17 15:07 BP 177/115 H 07/18/17 15:07 Pulse Ox 93 L 07/18/17 15:07 - Orders/Labs/Meds Labs: Laboratory Tests 07/18/17 07/18/17 07/18/17 Range/Units 15:10 15:10 15:10 WBC 10.07 (4.0-11.0) K/uL RBC 4.87 (4.50-5.90) M/uL Hgb 15.6 (13.0-17.0) g/dL Hct 44.8 (38.0-50.0) % MCV 92.0 (80.0-98.0) fL MCH 32.0 (27.0-32.0) pg MCHC 34.8 (31.0-37.0) g/dL RDW Std Deviation 44.3 (28.0-62.0) fl RDW Coeff of Charly 13 (11.0-15.0) % Plt Count 343 (150-400) K/uL MPV 9.60 (7.40-12.00) fL Neut % (Auto) 78.5 (48.0-80.0) % Lymph % (Auto) 9.7 L (16.0-40.0) % [place] % (Auto) 10.4 (0.0-15.0) % Eos % (Auto) 1.0 (0.0-7.0) % Baso % (Auto) 0.4 (0.0-1.5) % Neut # (Auto) 7.9 H (1.4-5.7) K/uL Lymph # (Auto) 1.0 (0.6-2.4) K/uL [place] # (Auto) 1.1 H (0.0-0.8) K/uL Eos # (Auto) 0.1 (0.0-0.7) K/uL Baso # (Auto) 0.0 (0.0-0.1) K/uL Nucleated RBC % 0.0 /100WBC Nucleated RBCs # 0 K/uL ABG Carboxyhemoglobin 8.8 (0-15) % Lactate 1.2 (0.20-2.00) mmol/L Sodium 139 (136-148) mmol/L Potassium 3.9 (3.5-5.1) mmol/L Chloride 104 (98-107) mmol/L Carbon Dioxide 26.3 (21.0-32.0) mmol/L BUN 13 (7.0-18.0) mg/dL Creatinine 0.9 (0.8-1.3) mg/dL Est Cr Clr Drug Dosing TNP Estimated GFR (MDRD) > 60.0 ml/min Glucose 131 H (74-106) mg/dL Calcium 9.1 (8.5-10.1) mg/dL Total Bilirubin 0.4 (0.2-1.0) mg/dL AST 22 (15-37) IU/L ALT 23 (14-63) IU/L Alkaline Phosphatase 41 L (46-116) U/L Troponin I < 0.050 (0.000-0.056) ng/mL Total Protein 6.9 (6.4-8.2) g/dL Albumin 3.7 (3.4-5.0) g/dL Globulin 3.2 (2.0-3.5) g/dL Albumin/Globulin Ratio 1.2 L (1.3-2.8) Urine Color Urine Appearance Urine pH (5.0-8.0) Ur Specific [place] (1.001-1.035) Urine Protein (NEGATIVE) mg/dL Urine Glucose (UA) (NEGATIVE) mg/dL Urine Ketones (NEGATIVE) mg/dL Urine Occult Blood (NEGATIVE) Urine Nitrite (NEGATIVE) Urine Bilirubin (NEGATIVE) Urine Urobilinogen (<2.0) EU/dL Ur Leukocyte Esterase (NEGATIVE) Urine RBC (0-2/HPF) Urine WBC (0-5/HPF) Ur Epithelial Cells (NONE-FEW) Urine Bacteria (NEGATIVE) Urine Opiates Screen (NEGATIVE) Ur Oxycodone Screen (NEGATIVE) Urine Methadone Screen (NEGATIVE) Ur Barbiturates Screen (NEGATIVE) Ur Phencyclidine Scrn (NEGATIVE) Ur Amphetamine Screen (NEGATIVE) U Methamphetamines Scrn (NEGATIVE) U Benzodiazepines Scrn (NEGATIVE) U Cocaine Metab Screen (NEGATIVE) U Marijuana (THC) Screen (NEGATIVE) 07/18/17 07/18/17 Range/Units 17:13 17:13 WBC (4.0-11.0) K/uL RBC (4.50-5.90) M/uL Hgb (13.0-17.0) g/dL Hct (38.0-50.0) % MCV (80.0-98.0) fL MCH (27.0-32.0) pg MCHC (31.0-37.0) g/dL RDW Std Deviation (28.0-62.0) fl RDW Coeff of Charly (11.0-15.0) % Plt Count (150-400) K/uL MPV (7.40-12.00) fL Neut % (Auto) (48.0-80.0) % Lymph % (Auto) (16.0-40.0) % [place] % (Auto) (0.0-15.0) % Eos % (Auto) (0.0-7.0) % Baso % (Auto) (0.0-1.5) % Neut # (Auto) (1.4-5.7) K/uL Lymph # (Auto) (0.6-2.4) K/uL [place] # (Auto) (0.0-0.8) K/uL Eos # (Auto) (0.0-0.7) K/uL Baso # (Auto) (0.0-0.1) K/uL Nucleated RBC % /100WBC Nucleated RBCs # K/uL ABG Carboxyhemoglobin (0-15) % Lactate (0.20-2.00) mmol/L Sodium (136-148) mmol/L Potassium (3.5-5.1) mmol/L Chloride (98-107) mmol/L Carbon Dioxide (21.0-32.0) mmol/L BUN (7.0-18.0) mg/dL Creatinine (0.8-1.3) mg/dL Est Cr Clr Drug Dosing Estimated GFR (MDRD) ml/min Glucose (74-106) mg/dL Calcium (8.5-10.1) mg/dL Total Bilirubin (0.2-1.0) mg/dL AST (15-37) IU/L ALT (14-63) IU/L Alkaline Phosphatase (46-116) U/L Troponin I (0.000-0.056) ng/mL Total Protein (6.4-8.2) g/dL Albumin (3.4-5.0) g/dL Globulin (2.0-3.5) g/dL Albumin/Globulin Ratio (1.3-2.8) Urine Color YELLOW Urine Appearance CLEAR Urine pH 5.5 (5.0-8.0) Ur Specific [place] <= 1.005 (1.001-1.035) Urine Protein NEGATIVE (NEGATIVE) mg/dL Urine Glucose (UA) NEGATIVE (NEGATIVE) mg/dL Urine Ketones NEGATIVE (NEGATIVE) mg/dL Urine Occult Blood TRACE-INTACT (NEGATIVE) Urine Nitrite NEGATIVE (NEGATIVE) Urine Bilirubin NEGATIVE (NEGATIVE) Urine Urobilinogen 0.2 (<2.0) EU/dL Ur Leukocyte Esterase NEGATIVE (NEGATIVE) Urine RBC 0-1 (0-2/HPF) Urine WBC 0-1 (0-5/HPF) Ur Epithelial Cells RARE (NONE-FEW) Urine Bacteria RARE (NEGATIVE) Urine Opiates Screen NEGATIVE (NEGATIVE) Ur Oxycodone Screen NEGATIVE (NEGATIVE) Urine Methadone Screen NEGATIVE (NEGATIVE) Ur Barbiturates Screen NEGATIVE (NEGATIVE) Ur Phencyclidine Scrn NEGATIVE (NEGATIVE) Ur Amphetamine Screen NEGATIVE (NEGATIVE) U Methamphetamines Scrn NEGATIVE (NEGATIVE) U Benzodiazepines Scrn NEGATIVE (NEGATIVE) U Cocaine Metab Screen NEGATIVE (NEGATIVE) U Marijuana (THC) Screen NEGATIVE (NEGATIVE) Meds: Medications Discontinued Medications Generic Name Dose Route Start Last Admin Trade Name Freq PRN Reason Stop Dose Admin Lactated Ringer's 1,000 mls @ 500 mls/hr 07/18/17 15:30 07/18/17 15:42 Ringers, Lactated IV 500 mls/hr .BOLUS FLYNN Administration Departure - Departure Time of Disposition: 17:25 Disposition: Home, Self-Care 01 Condition: Good Clinical Impression: Tachycardia COPD (chronic obstructive pulmonary disease) Qualifiers: COPD type: chronic bronchitis Instructions: Chronic Obstructive Pulmonary Disease, [id number], Sinus Tachycardia Referrals: PCP,None [Primary Care Provider] - Forms: ED Department Discharge Additional Instructions: The following information is given to patients seen in the emergency department who are being discharged to home. This information is to outline your options for follow-up care. We provide all patients seen in our emergency department with a follow-up referral. The need for follow-up, as well as the timing and circumstances, are variable depending upon the specifics of your emergency department visit. If you don't have a primary care physician on staff, we will provide you with a referral. We always advise you to contact your personal physician following an emergency department visit to inform them of the circumstance of the visit and for follow-up with them and/or the need for any referrals to a consulting specialist. The emergency department will also refer you to a specialist when appropriate. This referral assures that you have the opportunity for follow-up care with a specialist. All of these measure are taken in an effort to provide you with optimal care, which includes your follow-up. Under all circumstances we always encourage you to contact your private physician who remains a resource for coordinating your care. When calling for follow-up care, please make the office aware that this follow-up is from your recent emergency room visit. If for any reason you are refused follow-up, please contact the [facility] emergency department at and asked to speak to the emergency department charge nurse. [facility] [address] [place] [id number] Follow-up with your primary care provider or at the clinic listed above in 48- 72 hours. Continue regular home medications. Return to ER as needed as discussed.
[2017-07-18] MEDS ORDERED: Lactated Ringers 1,000 ML IV SCH (15:30)
[2017-07-18 16:02] LABS: CHLORIDE,CL 104 mmol/L (98-107); SODIUM,NA 139 mmol/L (136-148)
--- NOTE | 2017-07-18 16:22 | CR ---
EXAMINATION: Two-view chest (PA and Lateral views). HISTORY: Shortness of breath. FINDINGS: The trachea is midline. The cardiomediastinal silhouette is within normal limits. No pulmonary infilt rates, effusions or pneumothorax. Chronic interstitial prominence and mild hyperinflation. Subacute to chronic right sided rib fractures noted. IMPRESSION: 1. Interstitial prominence and hyperinflation likely secondary to emphysema. 2. Subacute to chronic right-sided rib fractures.
== END 2017-07-18 17:50 | disposition home or self-care (01) ==
LOC: MW.ED 14:53
DX: R00.0 Tachycardia, unspecified (principal); C34.90 Malignant neoplasm of unspecified part of unspecified bronchus or lung; J44.9 Chronic obstructive pulmonary disease, unspecified; I10 Essential (primary) hypertension; F17.210 Nicotine dependence, cigarettes, uncomplicated; Z88.5 Allergy status to narcotic agent; Z88.1 Allergy status to other antibiotic agents; Z88.8 Allergy status to other drugs, medicaments and biological substances; Z79.899 Other long term (current) drug therapy
CPT/HCPCS: 36415; 71046; 80053; 80305; 81001; 82375; 83605; 84484; 85025; 87804; 93005; 96360; 96361; 99285; J7120; 99284

== ENCOUNTER 2017-10-17 15:03 | Emergency (ER) | payer MEDICARE, OTHER ==
[2017-10-17] MEDS ORDERED: Aspirin 81 MG Tab.Chew PO ONE (15:10)
[2017-10-17] MEDS ORDERED: Sodium Chloride 0.9% 1,000 ML IV ONE (15:10)
--- NOTE | 2017-10-17 15:38 | EDM.PDOC ---
ED HPI GENERAL MEDICAL PROBLEM - General Chief Complaint: Upper Extremity Injury/Pain Stated Complaint: LEFT ARM PAIN Time Seen by Provider: 10/17/17 15:38 Source of Information: Reports: Patient - History of Present Illness INITIAL COMMENTS - FREE TEXT/NARRATIVE: HISTORY AND PHYSICAL: History of present illness: [Patient presents with a history of left arm pain actually that's his chief complaint He has no pain actually 0 out of 10 pain, as concern is he has developed some olecranon bursitis on his left elbow which is small nontender no redness warmth associated there is a bruise that his palms sized surrounding he denies any known injury or trauma he states it began yesterday after leaning on his elbow He has no fever nausea vomiting chills sweats no chest pain shortness breath headache dizziness palpitation no bowel or urine symptoms] Review of systems: As per history of present illness and below otherwise all systems reviewed and negative. Past medical history: As per history of present illness and as reviewed below otherwise noncontributory. Surgical history: As per history of present illness and as reviewed below otherwise noncontributory. Social history: No reported history of drug or alcohol abuse. Family history: As per history of present illness and as reviewed below otherwise noncontributory. Physical exam: HEENT: Atraumatic, normocephalic, pupils reactive, negative for conjunctival pallor or scleral icterus, mucous membranes moist, throat clear, neck supple, nontender, trachea midline. Lungs: Clear to auscultation, breath sounds equal bilaterally, chest nontender. Heart: S1S2, regular, negative for clicks, rubs, or JVD. Abdomen: Soft, nondistended, nontender. Negative for masses or hepatosplenomegaly. Negative for costovertebral tenderness. Pelvis: Stable nontender. Genitourinary: Deferred. Rectal: Deferred. Extremities: Atraumatic, negative for cords or calf pain. Neurovascular unremarkable. Olecranon bursitis noted as per history of present illness Neuro: Awake, alert, oriented. Cranial nerves II through XII unremarkable. Cerebellum unremarkable. Motor and sensory unremarkable throughout. Exam nonfocal. Skin as per history of present illness otherwise unremarkable Diagnostics: [Clinical EKG he declines further testing ] Therapeutics: [ 4 baby aspirin were provided with the left arm pain complaint per protocol ] Impression: [ olecranon bursitis left elbow ] Definitive disposition and diagnosis as appropriate pending reevaluation and review of above. Left elbow Pain Score (Numeric/FACES): 1 - Related Data Allergies Allergy/AdvReac Type Severity Reaction Status Date / Time clarithromycin [From Biaxin] Allergy Other Verified 10/17/17 15:06 codeine Allergy Other Verified 10/17/17 15:06 levofloxacin [From Levaquin] Allergy Other Verified 10/17/17 15:06 lisinopril Allergy Other Verified 10/17/17 15:06 morphine Allergy Other Verified 10/17/17 15:06 tramadol Allergy Anxiety Verified 10/17/17 15:06 Home Meds: Home Meds Levalbuterol HCl [Xopenex] 0.63 mg NEB Q4HRRT #1 box 03/10/17 [Rx] Losartan [Cozaar] 50 mg PO BID 03/10/17 [History] PARoxetine HCl [Paroxetine HCl] 20 mg PO TID 03/10/17 [History] Acetaminophen/HYDROcodone [[place] 325-5 MG] 1 tab PO Q4HR PRN 07/18/17 [History] Diclofenac Sodium [Voltaren] 75 mg PO ASDIRECTED 07/18/17 [History] Fluticasone/Vilanterol [Breo Ellipta 200-25 Mcg INH] 1 dose INH DAILY 07/18/17 [ History] Past Medical History Cardiovascular History: Reports: Hypertension Respiratory History: Reports: COPD, Other (See Below) Other Respiratory History: lung CA Psychiatric History: Reports: Anxiety Oncologic (Cancer) History: Reports: Lung - Infectious Disease History Infectious Disease History: Reports: Chicken Pox, Measles, Mumps - Past Surgical History Respiratory Surgical History: Reports: None Social & Family History - Family History Family Medical History: Noncontributory - Tobacco Use Smoking Status *Q: Current Every Day Smoker Years of Tobacco use: 50 Packs/Tins Daily: 1.5 - Caffeine Use Caffeine Use: Reports: Energy Drinks - Recreational Drug Use Recreational Drug Use: No Review of Systems - Review of Systems Review Of Systems: See Below ED EXAM, GENERAL - Physical Exam Exam: See Below Course - Vital Signs Last Recorded V/S: Last Vital Signs Temp 98.7 F 10/17/17 15:07 Pulse 115 H 10/17/17 15:07 Resp 16 10/17/17 15:07 BP 139/93 H 10/17/17 15:07 Pulse Ox 94 L 10/17/17 15:07 - Orders/Labs/Meds Orders: Active Orders 24 hr Category Date Time Status EKG Documentation Completion [RC] STAT Care 10/17/17 15:10 Active Chest 1V Frontal [CR] Stat Exams 10/17/17 15:10 Stop Req Meds: Medications Discontinued Medications Generic Name Dose Route Start Last Admin Trade Name Freq PRN Reason Stop Dose Admin Aspirin 324 mg 10/17/17 15:10 10/17/17 15:31 Aspirin PO 10/17/17 15:11 324 mg ONETIME ONE Administration Sodium Chloride 1,000 mls @ 999 mls/hr 10/17/17 15:10 Normal Saline IV 10/17/17 16:10 STAT ONE Departure - Departure Time of Disposition: 15:41 Disposition: Home, Self-Care 01 Condition: Good Clinical Impression: Olecranon bursitis - Discharge Information Referrals: Silvano Meadows MD [Primary Care Provider] - Forms: ED Department Discharge Additional Instructions: The following information is given to patients seen in the emergency department who are being discharged to home. This information is to outline your options for follow-up care. We provide all patients seen in our emergency department with a follow-up referral. The need for follow-up, as well as the timing and circumstances, are variable depending upon the specifics of your emergency department visit. If you don't have a primary care physician on staff, we will provide you with a referral. We always advise you to contact your personal physician following an emergency department visit to inform them of the circumstance of the visit and for follow-up with them and/or the need for any referrals to a consulting specialist. The emergency department will also refer you to a specialist when appropriate. This referral assures that you have the opportunity for follow-up care with a specialist. All of these measure are taken in an effort to provide you with optimal care, which includes your follow-up. Under all circumstances we always encourage you to contact your private physician who remains a resource for coordinating your care. When calling for follow-up care, please make the office aware that this follow-up is from your recent emergency room visit. If for any reason you are refused follow-up, please contact the [facility] emergency department at and asked to speak to the emergency department charge nurse. - My Orders Last 24 Hours: My Active Orders 10/17/17 15:10 EKG Documentation Completion [RC] STAT Chest 1V Frontal [CR] Stat - Assessment/Plan Last 24 Hours: My Active Orders 10/17/17 15:10 EKG Documentation Completion [RC] STAT Chest 1V Frontal [CR] Stat
== END 2017-10-17 15:59 | disposition home or self-care (01) ==
LOC: MW.ED 15:03
DX: M70.22 Olecranon bursitis, left elbow (principal); I10 Essential (primary) hypertension; J44.9 Chronic obstructive pulmonary disease, unspecified; F17.210 Nicotine dependence, cigarettes, uncomplicated; Z88.5 Allergy status to narcotic agent; Z79.899 Other long term (current) drug therapy
CPT/HCPCS: 93005; 99283; A9270

== ENCOUNTER 2018-05-20 12:29 | Emergency (ER) | payer MEDICARE, OTHER ==
[2018-05-20] MEDS ORDERED: methylPREDNISolone Sodium Succinate 125 MG/2 ML SDV IVPUSH ONE (12:33)
--- NOTE | 2018-05-20 12:33 | EDM.PDOC ---
ED HPI GENERAL MEDICAL PROBLEM - General Chief Complaint: Respiratory Problem Stated Complaint: FELL Time Seen by Provider: 05/20/18 12:31 Source of Information: Reports: Patient History Limitations: Reports: No Limitations - History of Present Illness INITIAL COMMENTS - FREE TEXT/NARRATIVE: HISTORY AND PHYSICAL: History of present illness: Patient is a 68-year-old male who presents to the ED today alongside his after she fell. He presents with severe shortness of breath and dyspnea. He states that he does have an underlying COPD and emphysema. He states that he is chronically short of breath, worse with ambulation or physical exertion. He does have inhalers and rescue inhalers to treat his symptoms. He denies ever needing any oxygen at home nor has had any hospitalizations for his COPD. He states that he had shortness of breath today, per usual but after his fell he became anxious and had increased shortness of breath. He wanted to be evaluated as his was being evaluated at this time for her fall. He is concerned that his blood pressure is elevated. He states he does have a long-standing history of tobacco use. Continues to use tobacco intermittently. He denies any fever, chills, chest pain, abdominal pain, nausea, vomiting, diarrhea or constipation. Denies any headache, change in vision, neck pain or any recent injuries or traumas. Has a history of COPD not requiring oxygen, afib, prostate cancer, and hypertension. Review of systems: As per history of present illness and below otherwise all systems reviewed and negative. Past medical history: As per history of present illness and as reviewed below otherwise noncontributory. Surgical history: As per history of present illness and as reviewed below otherwise noncontributory. Social history: See social history for further information Family history: As per history of present illness and as reviewed below otherwise noncontributory. Physical exam: General: Well-developed and well-nourished 68-year-old male. Patient is alert, orientated, in moderate distress. Able to speak in short 1 word replies, due to the shortness of breath. HEENT: Atraumatic, normocephalic, pupils equal and reactive bilaterally, negative for conjunctival pallor or scleral icterus, mucous membranes moist, TMs normal bilaterally, throat clear, neck supple, nontender, trachea midline. No drooling or trismus noted. No meningeal signs. No hot potato voice noted. Lungs: Expiratory phase is 2 times length of inspiratory phase. Otherwise, clear to auscultation, breath sounds equal bilaterally, chest nontender. Use of accessory muscles noted with inspiration. Barrel chest appearance Heart: Tachycardic, S1S2, regular rate and rhythm without overt murmur Abdomen: Soft, nondistended, nontender. Negative for masses or hepatosplenomegaly. Negative for costovertebral tenderness. Pelvis: Stable nontender. Genitourinary: Deferred. Rectal: Deferred. Skin: Intact, warm, dry. No lesions or rashes noted. Extremities: Atraumatic, moves all extremities per self without difficulty or deficits, negative for cords or calf pain. Neurovascular unremarkable. Neuro: Awake, alert, oriented. Cranial nerves II through XII unremarkable. Cerebellum unremarkable. Motor and sensory unremarkable throughout. Exam nonfocal. Notes: Upon arrival to the ED patient is tachypneic and using accessory muscles to breathe. After a few minutes, he calm down and breathing was more at ease. He is now able to speak in short sentences. Chest x-ray shows no infiltration or pneumonia. Hyperinflation noted. Lab work is unremarkable. His ABGs show no acute or concerning findings at this time. His vital signs are stable and he states that he feels improved. I did offer him admission to continue to monitor his respiratory status, he declines. When he checked and he did check in with his who happened to fall and needed evaluation as well. The is being transferred, patient is aware. Patient's O2 saturation is 94% on room air. His vital signs are stable. Patient continues to decline the offered admission. We'll discharge him to home with thorough education. Family member is at bedside due to the family dynamics of the being transferred. His instructions were reviewed with him as well. Everyone voices understanding and is agreeable to plan of care. Denies any further questions or concerns at this time. Diagnostics: EKG, CXR, CBC, CMP, Troponin, ABG, cardiac monitoring Therapeutics: DuoNeb, Oxygen, Solumedrol Prescription: [employer]pack Medrol Dosepak Impression: COPD exacerbation Plan: 1. Please stop tobacco use. 2. Please take your newly prescribed medications as directed. Take the already prescribed inhalers and rescue breathing medications that you have at home as needed and as directed. 3. Please follow-up with your primary caregiver on Monday. Return to the ED as needed and as discussed. Definitive disposition and diagnosis as appropriate pending reevaluation and review of above. Onset: Today Duration: Chronic (Acute on chronic) - Related Data Allergies Allergy/AdvReac Type Severity Reaction Status Date / Time clarithromycin [From Biaxin] Allergy Other Verified 05/20/18 12:44 codeine Allergy Other Verified 05/20/18 12:44 levofloxacin [From Levaquin] Allergy Other Verified 05/20/18 12:44 lisinopril Allergy Other Verified 05/20/18 12:44 morphine Allergy Other Verified 05/20/18 12:44 tramadol Allergy Anxiety Verified 05/20/18 12:44 Home Meds: Home Meds Levalbuterol HCl [Xopenex] 0.63 mg NEB Q4HRRT #1 box 03/10/17 [Rx] Acetaminophen/HYDROcodone [[place] 325-5 MG] 1 tab PO Q4HR PRN 07/18/17 [History] Fluticasone/Vilanterol [Breo Ellipta 200-25 Mcg INH] 1 dose INH DAILY 07/18/17 [ History] Albuterol Sulfate [Proair Hfa] 1 - 2 puff INH Q4H 05/20/18 [History] Apixaban [Eliquis] 05/20/18 [History] LORazepam 0.5 mg PO QID 05/20/18 [History] Tiotropium [place] [Spiriva Respimat] 2 puff INH DAILY 05/20/18 [History] Past Medical History HEENT History: Reports: Impaired Vision Cardiovascular History: Reports: Hypertension Respiratory History: Reports: COPD, Other (See Below) Other Respiratory History: lung CA Gastrointestinal History: Reports: Diverticulosis Psychiatric History: Reports: Anxiety Oncologic (Cancer) History: Reports: Lung - Infectious Disease History Infectious Disease History: Reports: Chicken Pox, Measles, Mumps - Past Surgical History Respiratory Surgical History: Reports: None Social & Family History - Family History Family Medical History: Noncontributory - Caffeine Use Caffeine Use: Reports: Energy Drinks ED ROS GENERAL - Review of Systems Review Of Systems: ROS reveals no pertinent complaints other than HPI. ED EXAM, GENERAL - Physical Exam Exam: See Below (See dictation) Course - Vital Signs Last Recorded V/S: Last Vital Signs Temp 99.2 F 05/20/18 12:35 Pulse 133 H 05/20/18 12:35 Resp 38 H 05/20/18 12:35 BP 199/120 H 05/20/18 12:35 Pulse Ox 89 L 05/20/18 12:35 - Orders/Labs/Meds Orders: Active Orders 24 hr Category Date Time Status BIPAP Adult [RT BiPAP/CPAP] [RC] ASDIRECTED Care 05/20/18 12:34 Inactive EKG Documentation Completion [RC] STAT Care 05/20/18 12:31 Active RT Aerosol Therapy [RC] ASDIRECTED Care 05/20/18 12:33 Active Labs: Laboratory Tests 05/20/18 05/20/18 05/20/18 Range/Units 12:30 12:30 12:50 WBC 10.44 (4.0-11.0) K/uL RBC 4.97 (4.50-5.90) M/uL Hgb 15.1 (13.0-17.0) g/dL Hct 44.8 (38.0-50.0) % MCV 90.1 (80.0-98.0) fL MCH 30.4 (27.0-32.0) pg MCHC 33.7 (31.0-37.0) g/dL RDW Std Deviation 47.1 (28.0-62.0) fl RDW Coeff of Charly 14 (11.0-15.0) % Plt Count 366 (150-400) K/uL MPV 9.50 (7.40-12.00) fL Neut % (Auto) 77.1 (48.0-80.0) % Lymph % (Auto) 13.7 L (16.0-40.0) % [place] % (Auto) 7.0 (0.0-15.0) % Eos % (Auto) 1.9 (0.0-7.0) % Baso % (Auto) 0.3 (0.0-1.5) % Neut # (Auto) 8.1 H (1.4-5.7) K/uL Lymph # (Auto) 1.4 (0.6-2.4) K/uL [place] # (Auto) 0.7 (0.0-0.8) K/uL Eos # (Auto) 0.2 (0.0-0.7) K/uL Baso # (Auto) 0.0 (0.0-0.1) K/uL Nucleated RBC % 0.0 /100WBC Nucleated RBCs # 0 K/uL ABG pH 7.402 (7.35-7.45) ABG pCO2 40 (35-45) mmHG ABG pO2 107 H (75-100) mmHG ABG HCO3 25 (22-26) mEq/L ABG Total CO2 22.2 ABG Base Excess 0.2 (-2.0-2.0) Sodium 144 (136-148) mmol/L Potassium 3.9 (3.5-5.1) mmol/L Chloride 106 (98-107) mmol/L Carbon Dioxide 24.8 (21.0-32.0) mmol/L BUN 8 (7.0-18.0) mg/dL Creatinine 1.2 (0.8-1.3) mg/dL Est Cr Clr Drug Dosing 53.30 mL/min Estimated GFR (MDRD) > 60.0 ml/min Glucose 112 H (74-106) mg/dL Calcium 9.7 (8.5-10.1) mg/dL Total Bilirubin 0.4 (0.2-1.0) mg/dL AST 25 (15-37) IU/L ALT 33 (14-63) IU/L Alkaline Phosphatase 47 (46-116) U/L Troponin I < 0.050 (0.000-0.056) ng/mL Total Protein 7.8 (6.4-8.2) g/dL Albumin 4.0 (3.4-5.0) g/dL Globulin 3.8 (2.6-4.0) g/dL Albumin/Globulin Ratio 1.1 (0.9-1.6) Meds: Medications Discontinued Medications Generic Name Dose Route Start Last Admin Trade Name Freq PRN Reason Stop Dose Admin Albuterol/Ipratropium 3 ml 05/20/18 12:33 05/20/18 13:02 Duoneb 3.0-0.5 Mg/3 Ml NEB 05/20/18 12:34 3 ml ONETIME ONE Administration Methylprednisolone Sodium Succinate 125 mg 05/20/18 12:33 05/20/18 12:49 Solu-Medrol IVPUSH 05/20/18 12:34 125 mg ONETIME ONE Administration Departure - Departure Time of Disposition: 13:35 Disposition: Home, Self-Care 01 Clinical Impression: COPD exacerbation - Discharge Information Instructions: Chronic Obstructive Pulmonary Disease, [id number] Referrals: PCP,Unknown [Primary Care Provider] - Forms: ED Department Discharge Additional Instructions: The following information is given to patients seen in the emergency department who are being discharged to home. This information is to outline your options for follow-up care. We provide all patients seen in our emergency department with a follow-up referral. The need for follow-up, as well as the timing and circumstances, are variable depending upon the specifics of your emergency department visit. If you don't have a primary care physician on staff, we will provide you with a referral. We always advise you to contact your personal physician following an emergency department visit to inform them of the circumstance of the visit and for follow-up with them and/or the need for any referrals to a consulting specialist. The emergency department will also refer you to a specialist when appropriate. This referral assures that you have the opportunity for follow-up care with a specialist. All of these measure are taken in an effort to provide you with optimal care, which includes your follow-up. Under all circumstances we always encourage you to contact your private physician who remains a resource for coordinating your care. When calling for follow-up care, please make the office aware that this follow-up is from your recent emergency room visit. If for any reason you are refused follow-up, please contact the [facility] Emergency Department at and asked to speak to the emergency department charge nurse. [facility] [address] [place] [address] [id number] [address] [address] 1. Please stop tobacco use. 2. Please take your newly prescribed medications as directed. Take the already prescribed inhalers and rescue breathing medications that you have at home as needed and as directed. 3. Please follow-up with your primary caregiver on Monday. Return to the ED as needed and as discussed. - My Orders Last 24 Hours: My Active Orders 05/20/18 12:31 EKG Documentation Completion [RC] STAT 05/20/18 12:33 RT Aerosol Therapy [RC] ASDIRECTED 05/20/18 12:34 BIPAP Adult [RT BiPAP/CPAP] [RC] ASDIRECTED - Assessment/Plan Last 24 Hours: My Active Orders 05/20/18 12:31 EKG Documentation Completion [RC] STAT 05/20/18 12:33 RT Aerosol Therapy [RC] ASDIRECTED 05/20/18 12:34 BIPAP Adult [RT BiPAP/CPAP] [RC] ASDIRECTED
[2018-05-20] MEDS: Albuterol/Ipratropium 3.0-0.5 MG/3 ML Neb Soln NEB ONE ×2 (12:49→13:02)
[2018-05-20 13:09] LABS: CHLORIDE,CL 106 mmol/L (98-107); SODIUM,NA 144 mmol/L (136-148)
--- NOTE | 2018-05-20 13:22 | CR ---
Indication: Dyspnea. High blood pressure. Technique: A single AP portable view of the chest was obtained. Comparison: March 19, 2018 Findings: Healed right rib fractures are identified. This is stable. Heart is normal in size. The lungs are hyperinflated. No infiltrate, pleural effusion, or pneumothorax is identified. Impression: Hyperinflation. Dictated by María Simms MD @ May 20 2018 1:19PM Signed by Dr. María Simms @ May 20 2018 1:19PM
== END 2018-05-20 13:47 | disposition home or self-care (01) ==
LOC: MW.ED 12:29
DX: J44.1 Chronic obstructive pulmonary disease with (acute) exacerbation (principal); F17.210 Nicotine dependence, cigarettes, uncomplicated; I10 Essential (primary) hypertension; Z88.1 Allergy status to other antibiotic agents; Z79.899 Other long term (current) drug therapy
CPT/HCPCS: 36415; 36600; 71045; 80053; 82803; 84484; 85025; 87804; 93005; 94640; 96374; 99285; J2930; J7620-GY

== ENCOUNTER 2018-06-21 13:58 | Emergency (ER) | payer MEDICARE, OTHER ==
[2018-06-21] MEDS ORDERED: Sodium Chloride 0.9% 10 ML Syringe FLUSH PRN (14:03)
[2018-06-21] MEDS ORDERED: Sodium Chloride 0.9% 2.5 ML Syringe FLUSH PRN (14:03)
--- NOTE | 2018-06-21 14:04 | EDM.PDOC ---
ED HPI GENERAL MEDICAL PROBLEM - General Chief Complaint: Chest Pain Stated Complaint: CHEST PAIN,SOB Time Seen by Provider: 06/21/18 14:04 Source of Information: Reports: Patient History Limitations: Reports: No Limitations - History of Present Illness INITIAL COMMENTS - FREE TEXT/NARRATIVE: HISTORY AND PHYSICAL: History of present illness: Patient is a 68-year-old male with history of COPD here for shortness of breath. He states it has been going on for the past week but worse today. He is taking his inhalers as prescribed. He has a chronic cough that is not new or worsened and nonproductive. He denies chest pain, fevers, chills, nausea, vomiting abdominal pain, diarrhea. O2 88% on RA on arrival. Review of systems: As per history of present illness and below otherwise all systems reviewed and negative. Past medical history: As per history of present illness and as reviewed below otherwise noncontributory. Surgical history: As per history of present illness and as reviewed below otherwise noncontributory. Social history: No reported history of drug or alcohol abuse. Family history: As per history of present illness and as reviewed below otherwise noncontributory. Physical exam: General: Patient sitting comfortably in no acute distress and nontoxic appearing. Speaking in full sentences. HEENT: Atraumatic, normocephalic, pupils reactive, negative for conjunctival pallor or scleral icterus, mucous membranes moist, throat clear, neck supple, nontender, trachea midline. No meningeal signs. Lungs:Breath sounds diminished throughout all lung [place], chest nontender. Heart: S1S2, regular, negative for clicks, rubs, or overt murmur. Abdomen: Soft, nondistended, nontender. Negative for masses or hepatosplenomegaly. Negative for costovertebral tenderness. No rigidity, rebound , guarding. Pelvis: Stable nontender. Genitourinary: Deferred. Rectal: Deferred. Extremities: Atraumatic, negative for cords or calf pain. Neurovascular unremarkable. Neuro: Awake, alert, oriented. Cranial nerves II through XII unremarkable. Cerebellum unremarkable. Motor and sensory unremarkable throughout. Exam nonfocal. Notes: Patient states he does not want solumedrol as this causes his heart rate to go up to 160. He believes it was the medrol dosepak that he was prescribed that caused this. He agrees to dexamethasone here but does not want a steroid to take at home. O2 95% on RA after therapeutics. Diagnostics: CBC, CMP, troponin, CXR Therapeutics: DuoNeb Dexamethasone Prescriptions: Azithromycin Impression: COPD exacerbation Plan: 1. Take antibiotic as instructed. Continue inhalers as prescribed 2. Follow up with primary care provider 3. Return to ED as needed as discussed Definitive disposition and diagnosis as appropriate pending reevaluation and review of above. - Related Data Allergies Allergy/AdvReac Type Severity Reaction Status Date / Time clarithromycin [From Biaxin] Allergy Other Verified 06/21/18 14:07 codeine Allergy Other Verified 06/21/18 14:07 levofloxacin [From Levaquin] Allergy Other Verified 06/21/18 14:07 lisinopril Allergy Other Verified 06/21/18 14:07 methylprednisolone Allergy Tachycardia Verified 06/21/18 14:07 [From Solu-Medrol] morphine Allergy Other Verified 06/21/18 14:07 tramadol Allergy Anxiety Verified 06/21/18 14:07 Home Meds: Home Meds Levalbuterol HCl [Xopenex] 0.63 mg NEB Q4HRRT #1 box 03/10/17 [Rx] Acetaminophen/HYDROcodone [[place] 325-5 MG] 1 tab PO Q4HR PRN 07/18/17 [History] Fluticasone/Vilanterol [Breo Ellipta 200-25 Mcg INH] 1 dose INH DAILY 07/18/17 [ History] Albuterol Sulfate [Proair Hfa] 1 - 2 puff INH Q4H 05/20/18 [History] Apixaban [Eliquis] 1 tab BID 05/20/18 [History] LORazepam 0.5 mg PO QID 05/20/18 [History] Tiotropium [place] [Spiriva Respimat] 2 puff INH DAILY 05/20/18 [History] Roflumilast [Daliresp] 06/21/18 [History] Past Medical History HEENT History: Reports: Impaired Vision Cardiovascular History: Reports: Hypertension Respiratory History: Reports: COPD, Other (See Below) Other Respiratory History: lung CA Gastrointestinal History: Reports: Diverticulosis Psychiatric History: Reports: Anxiety Oncologic (Cancer) History: Reports: Lung - Infectious Disease History Infectious Disease History: Reports: Chicken Pox, Measles, Mumps - Past Surgical History Respiratory Surgical History: Reports: None Social & Family History - Family History Family Medical History: Noncontributory - Caffeine Use Caffeine Use: Reports: Energy Drinks ED ROS GENERAL - Review of Systems Review Of Systems: ROS reveals no pertinent complaints other than HPI. ED EXAM, GENERAL - Physical Exam Exam: See Below (see dictation) Course - Vital Signs Last Recorded V/S: Last Vital Signs Temp 98.5 F 06/21/18 14:05 Pulse 124 H 06/21/18 14:05 Resp 22 H 06/21/18 14:05 BP 142/91 H 06/21/18 14:05 Pulse Ox 91 L 06/21/18 14:21 - Orders/Labs/Meds Orders: Active Orders 24 hr Category Date Time Status Cardiac Monitoring [RC] . DIRECTED Care 06/21/18 14:03 Active EKG Documentation Completion [RC] STAT Care 06/21/18 14:03 Active RT Aerosol Therapy [RC] ASDIRECTED Care 06/21/18 14:11 Active Chest 1V Frontal [CR] Stat Exams 06/21/18 14:03 Taken Sodium Chloride 0.9% [Saline Flush] Med 06/21/18 14:03 Active 10 ml FLUSH ASDIRECTED PRN Sodium Chloride 0.9% [Saline Flush] Med 06/21/18 14:03 Active 2.5 ml FLUSH ASDIRECTED PRN Saline Lock Insert [OM.PC] Stat Oth 06/21/18 14:03 Ordered Saline Lock Insert [OM.PC] Stat Oth 06/21/18 14:03 Ordered Medication Orders Sodium Chloride (Saline Flush) 10 ml FLUSH ASDIRECTED PRN PRN Reason: Keep Vein Open Last Admin: 06/21/18 14:42 Dose: 10 ml Sodium Chloride (Saline Flush) 2.5 ml FLUSH ASDIRECTED PRN PRN Reason: Keep Vein Open Last Admin: 06/21/18 14:42 Dose: 2.5 ml Labs: Laboratory Tests 06/21/18 06/21/18 06/21/18 Range/Units 14:31 14:31 14:31 WBC 9.01 (4.0-11.0) K/uL RBC 4.99 (4.50-5.90) M/uL Hgb 15.3 (13.0-17.0) g/dL Hct 43.9 (38.0-50.0) % MCV 88.0 (80.0-98.0) fL MCH 30.7 (27.0-32.0) pg MCHC 34.9 (31.0-37.0) g/dL RDW Std Deviation 45.5 (28.0-62.0) fl RDW Coeff of Charly 14 (11.0-15.0) % Plt Count 324 (150-400) K/uL MPV 9.80 (7.40-12.00) fL Neut % (Auto) 76.4 (48.0-80.0) % Lymph % (Auto) 13.9 L (16.0-40.0) % [place] % (Auto) 8.5 (0.0-15.0) % Eos % (Auto) 1.0 (0.0-7.0) % Baso % (Auto) 0.2 (0.0-1.5) % Neut # (Auto) 6.9 H (1.4-5.7) K/uL Lymph # (Auto) 1.3 (0.6-2.4) K/uL [place] # (Auto) 0.8 (0.0-0.8) K/uL Eos # (Auto) 0.1 (0.0-0.7) K/uL Baso # (Auto) 0.0 (0.0-0.1) K/uL Nucleated RBC % 0.0 /100WBC Nucleated RBCs # 0 K/uL INR 1.01 Sodium 140 (136-148) mmol/L Potassium 3.9 (3.5-5.1) mmol/L Chloride 104 (98-107) mmol/L Carbon Dioxide 28.3 (21.0-32.0) mmol/L BUN 11 (7.0-18.0) mg/dL Creatinine 1.1 (0.8-1.3) mg/dL Est Cr Clr Drug Dosing 57.73 mL/min Estimated GFR (MDRD) > 60.0 ml/min Glucose 129 H (74-106) mg/dL Calcium 9.5 (8.5-10.1) mg/dL Total Bilirubin 0.3 (0.2-1.0) mg/dL AST 25 (15-37) IU/L ALT 29 (14-63) IU/L Alkaline Phosphatase 41 L (46-116) U/L Troponin I < 0.050 (0.000-0.056) ng/mL Total Protein 7.2 (6.4-8.2) g/dL Albumin 3.8 (3.4-5.0) g/dL Globulin 3.4 (2.6-4.0) g/dL Albumin/Globulin Ratio 1.1 (0.9-1.6) Meds: Medications Generic Name Dose Route Start Last Admin Trade Name Freq PRN Reason Stop Dose Admin Sodium Chloride 10 ml 06/21/18 14:03 06/21/18 14:42 Saline Flush FLUSH 10 ml ASDIRECTED PRN Administration Keep Vein Open Sodium Chloride 2.5 ml 06/21/18 14:03 06/21/18 14:42 Saline Flush FLUSH 2.5 ml ASDIRECTED PRN Administration Keep Vein Open Discontinued Medications Generic Name Dose Route Start Last Admin Trade Name Freq PRN Reason Stop Dose Admin Albuterol/Ipratropium 3 ml 06/21/18 14:11 06/21/18 14:20 Duoneb 3.0-0.5 Mg/3 Ml NEB 06/21/18 14:12 3 ml ONETIME ONE Administration Albuterol/Ipratropium Confirm 06/21/18 14:12 06/21/18 14:20 Duoneb 3.0-0.5 Mg/3 Ml Administered 06/21/18 14:13 Not Given Dose 3 ml .ROUTE .STK-MED ONE Dexamethasone 5 mg 06/21/18 14:22 06/21/18 14:41 Dexamethasone IVPUSH 06/21/18 14:23 5 mg ONETIME ONE Administration Sodium Chloride 1,000 mls @ 999 mls/hr 06/21/18 14:21 06/21/18 14:42 Normal Saline IV 06/21/18 15:21 999 mls/hr STAT ONE Administration Departure - Departure Time of Disposition: 15:29 Disposition: Home, Self-Care 01 Condition: Good Clinical Impression: COPD exacerbation Forms: ED Department Discharge Additional Instructions: The following information is given to patients seen in the emergency department who are being discharged to home. This information is to outline your options for follow-up care. We provide all patients seen in our emergency department with a follow-up referral. The need for follow-up, as well as the timing and circumstances, are variable depending upon the specifics of your emergency department visit. If you don't have a primary care physician on staff, we will provide you with a referral. We always advise you to contact your personal physician following an emergency department visit to inform them of the circumstance of the visit and for follow-up with them and/or the need for any referrals to a consulting specialist. The emergency department will also refer you to a specialist when appropriate. This referral assures that you have the opportunity for follow-up care with a specialist. All of these measure are taken in an effort to provide you with optimal care, which includes your follow-up. Under all circumstances we always encourage you to contact your private physician who remains a resource for coordinating your care. When calling for follow-up care, please make the office aware that this follow-up is from your recent emergency room visit. If for any reason you are refused follow-up, please contact the [facility] Emergency Department at and asked to speak to the emergency department charge nurse. [address] [address] 1. Take antibiotic as instructed. Continue inhalers as prescribed 2. Follow up with primary care provider 3. Return to ED as needed as discussed - My Orders Last 24 Hours: My Active Orders 06/21/18 14:03 Cardiac Monitoring [RC] . DIRECTED EKG Documentation Completion [RC] STAT Chest 1V Frontal [CR] Stat Sodium Chloride 0.9% [Saline Flush] 10 ml FLUSH ASDIRECTED PRN Sodium Chloride 0.9% [Saline Flush] 2.5 ml FLUSH ASDIRECTED PRN Saline Lock Insert [OM.PC] Stat Saline Lock Insert [OM.PC] Stat 06/21/18 14:11 RT Aerosol Therapy [RC] ASDIRECTED - Assessment/Plan Last 24 Hours: My Active Orders 06/21/18 14:03 Cardiac Monitoring [RC] . DIRECTED EKG Documentation Completion [RC] STAT Chest 1V Frontal [CR] Stat Sodium Chloride 0.9% [Saline Flush] 10 ml FLUSH ASDIRECTED PRN Sodium Chloride 0.9% [Saline Flush] 2.5 ml FLUSH ASDIRECTED PRN Saline Lock Insert [OM.PC] Stat Saline Lock Insert [OM.PC] Stat 06/21/18 14:11 RT Aerosol Therapy [RC] ASDIRECTED
[2018-06-21] MEDS ORDERED: Albuterol/Ipratropium 3.0-0.5 MG/3 ML Neb Soln NEB ONE (14:11)
[2018-06-21] MEDS ORDERED: Albuterol/Ipratropium 3.0-0.5 MG/3 ML Neb Soln ONE (14:12)
[2018-06-21] MEDS ORDERED: Sodium Chloride 0.9% 1,000 ML IV ONE (14:21)
[2018-06-21] MEDS ORDERED: Dexamethasone 10 MG/ML SDV IVPUSH ONE (14:22)
[2018-06-21 15:03] LABS: CHLORIDE,CL 104 mmol/L (98-107); SODIUM,NA 140 mmol/L (136-148)
[2018-06-21] MEDS ORDERED: Ondansetron 4 MG Tab.DIS ONE (15:59)
[2018-06-21] MEDS ORDERED: Ondansetron 4 MG Tab.DIS PO ONE (16:00)
--- NOTE | 2018-06-22 16:31 | CR ---
EXAM DATE: 06/21/18 PATIENT'S AGE: 68 Patient: KADEN HENRIQUEZ Facility: [facility] Site . Site : [id number] Study: XRay-Chest [id number] 2:55:17 PM Ordering Physician: Doctor Steve Final Report: Indication: Chest pain Technique: Chest 1 view Comparison: May 20, 2018 Findings/Impression: Stable cardiomediastinal silhouette. Hyperinflated lungs. No focal infiltrate, effusion, or pneumothorax. No acute osseous abnormality. Dictated by Raquel Winn MD @ Jun 21 2018 3:30PM Signed by: Raquel Winn MD @06/21/2018 3:30:40 PM (Electronic Signature) Report Signed by Proxy. [facility]
== END 2018-06-21 16:03 | disposition home or self-care (01) ==
LOC: MW.ED 13:58
DX: J44.1 Chronic obstructive pulmonary disease with (acute) exacerbation (principal); I10 Essential (primary) hypertension; Z88.1 Allergy status to other antibiotic agents; Z88.5 Allergy status to narcotic agent; Z88.8 Allergy status to other drugs, medicaments and biological substances; Z79.899 Other long term (current) drug therapy
CPT/HCPCS: 36415; 71045; 80053; 84484; 85025; 85610; 93005; 94640; 96360; 99285; A9270; J1100; J7040; 99284; J7620-GY

== ENCOUNTER 2019-02-15 10:34 | Emergency (ER) | payer MEDICARE, OTHER ==
[2019-02-15] MEDS ORDERED: Sodium Chloride 0.9% 2.5 ML Syringe FLUSH PRN (10:43)
[2019-02-15] MEDS ORDERED: Albuterol/Ipratropium 3.0-0.5 MG/3 ML Neb Soln NEB ONE (10:43)
[2019-02-15] MEDS ORDERED: Sodium Chloride 0.9% 10 ML Syringe FLUSH PRN (10:43)
[2019-02-15] MEDS ORDERED: Sodium Chloride 0.9% 1,000 ML IV ONE (10:43)
[2019-02-15] MEDS ORDERED: HYDROmorphone 2 MG/ML Syringe IVPUSH ONE (10:46)
[2019-02-15] MEDS ORDERED: Ondansetron 4 MG/2 ML SDV IVPUSH ONE (10:46)
--- NOTE | 2019-02-15 10:47 | EDM.PDOC ---
ED HPI GENERAL MEDICAL PROBLEM - General Stated Complaint: SOB Time Seen by Provider: 02/15/19 10:42 Source of Information: Reports: Patient History Limitations: Reports: No Limitations - History of Present Illness INITIAL COMMENTS - FREE TEXT/NARRATIVE: History of present illness: []Patient has history of COPD and previous lung cancer that was "burned out" followed by radiation last treatment being May 2 years ago, presents with severe shortness of breath. Patient arrived in respiratory distress and initially stated he did not want to be intubated but changed his mind while in the ED and asked to be intubated. He denies any fevers, chills, cough or recent illnesses. He has chronic costochondritis and always has right lower rib pain radiating to his back. Review of systems: As per history of present illness and below otherwise all systems reviewed and negative. Past medical history: As per history of present illness and as reviewed below otherwise noncontributory. Surgical history: As per history of present illness and as reviewed below otherwise noncontributory. Social history: No reported history of drug or alcohol abuse. Family history: As per history of present illness and as reviewed below otherwise noncontributory. Physical exam: General: Well developed, thin, cachectic, dehydrated appearing male in respiratory distress HEENT: Atraumatic, normocephalic, pupils reactive, negative for conjunctival pallor or scleral icterus, mucous membranes dry, throat clear, neck supple, nontender, trachea midline. Lungs: Chest, Severe chest wall retractions, no breath sounds appreciated. Heart: S1S2, regular Abdomen: scaphoid, NABS, Soft, nondistended, nontender. Negative for masses or hepatosplenomegaly. Negative for costovertebral tenderness. Pelvis: Stable nontender. Genitourinary: Deferred. Rectal: Deferred. Extremities: Atraumatic, negative for cords or calf pain. Neurovascular unremarkable. Neuro: Awake, alert, oriented. Cranial nerves II through XII unremarkable. Cerebellum unremarkable. Motor and sensory unremarkable throughout. Exam nonfocal. Skin:warm and dry Diagnostics: EKG, chest x-ray, CBC, chemistry, troponin Therapeutics: DuoNeb without improvement, patient refused steroids, patient was intubated ED Course: Impression: respiratory failure, COPD Prescriptions: none Plan: transfer to [facility] Dr. [facility] accepts patient, he will be flown Definitive disposition and diagnosis as appropriate pending reevaluation and review of above. Right Chest Pain Score (Numeric/FACES): 10 - Related Data Allergies Allergy/AdvReac Type Severity Reaction Status Date / Time clarithromycin [From Biaxin] Allergy Other Verified 02/15/19 10:53 codeine Allergy Other Verified 02/15/19 10:53 levofloxacin [From Levaquin] Allergy Other Verified 02/15/19 10:53 lisinopril Allergy Other Verified 02/15/19 10:53 methylprednisolone Allergy Tachycardia Verified 02/15/19 10:53 [From Solu-Medrol] morphine Allergy Other Verified 02/15/19 10:53 tramadol Allergy Anxiety Verified 02/15/19 10:53 Home Meds: Home Meds Levalbuterol HCl [Xopenex] 0.63 mg NEB Q4HRRT #1 box 03/10/17 [Rx] Acetaminophen/HYDROcodone [[place] 325-5 MG] 1 tab PO Q4HR PRN 07/18/17 [History] Fluticasone/Vilanterol [Breo Ellipta 200-25 Mcg INH] 1 dose INH DAILY 07/18/17 [ History] Albuterol Sulfate [Proair Hfa] 1 - 2 puff INH Q4H 05/20/18 [History] Apixaban [Eliquis] 1 tab BID 05/20/18 [History] LORazepam 0.5 mg PO QID 05/20/18 [History] Tiotropium [place] [Spiriva Respimat] 2 puff INH DAILY 05/20/18 [History] Roflumilast [Daliresp] 5,000 mcg PO ASDIRECTED 06/21/18 [History] Cyclobenzaprine [Flexeril] 10 mg PO TID 02/15/19 [History] Past Medical History HEENT History: Reports: Impaired Vision Cardiovascular History: Reports: Hypertension Respiratory History: Reports: COPD, Other (See Below) Other Respiratory History: lung [place] Gastrointestinal History: Reports: Diverticulosis Psychiatric History: Reports: Anxiety Hematologic History: Reports: Anticoagulation Therapy Oncologic (Cancer) History: Reports: Lung - Infectious Disease History Infectious Disease History: Reports: Chicken Pox, Measles, Mumps - Past Surgical History Respiratory Surgical History: Reports: None Social & Family History - Family History Family Medical History: Noncontributory - Caffeine Use Caffeine Use: Reports: Energy Drinks ED ROS GENERAL - Review of Systems Review Of Systems: See Below ED EXAM, GENERAL - Physical Exam Exam: See Below ED RESPIRATORY PROCEDURES - Endotracheal Intubation ET Intubation Indication: Respiratory Failure Preparation: Suction, Balloon Tested, BVM Set Up, Difficult Airway Equip Pre-Oxygenation: Assisted with BVM, 100% FiO2 Anesthesia Meds: Etomidate, Succinylcholine Placement: Orotracheal Cords Visualized: Yes ETT Size In mm: 7.5 Number of Attempts: 2 Confirmed By: CO2 Indicator, Bilateral Breath Sounds, Chest Xray Tube Secured By: By RT Course - Vital Signs Last Recorded V/S: Last Vital Signs Temp 97.5 F 02/15/19 11:00 Pulse 135 H 02/15/19 11:00 Resp 40 H 02/15/19 11:00 BP 137/104 H 02/15/19 11:00 Pulse Ox 77 L 02/15/19 11:00 - Orders/Labs/Meds Orders: Active Orders 24 hr Category Date Time Status Cardiac Monitoring [RC] . DIRECTED Care 02/15/19 10:42 Active EKG Documentation Completion [RC] STAT Care 02/15/19 10:42 Active Oxygen Therapy, ED [RC] ASDIRECTED Care 02/15/19 10:42 Active Pulse Oximetry [RC] ASDIRECTED Care 02/15/19 10:42 Active RASS Sedation Scale [RC] ASDIRECTED Care 02/15/19 12:41 Active RT Aerosol Therapy [RC] ASDIRECTED Care 02/15/19 10:43 Active Desired Level of Sedation (RASS) [AST] Click To Edit Oth 02/15/19 12:41 Ordered Saline Lock Insert [OM.PC] Stat Oth 02/15/19 10:42 Ordered Labs: Laboratory Tests 02/15/19 02/15/19 02/15/19 Range/Units 10:48 10:48 10:50 WBC 12.14 H (4.0-11.0) K/uL RBC 4.96 (4.50-5.90) M/uL Hgb 15.2 (13.0-17.0) g/dL Hct 46.0 (38.0-50.0) % MCV 92.7 (80.0-98.0) fL MCH 30.6 (27.0-32.0) pg MCHC 33.0 (31.0-37.0) g/dL RDW Std Deviation 48.7 (28.0-62.0) fl RDW Coeff of [place] 14 (11.0-15.0) % Plt Count 417 H (150-400) K/uL MPV 9.60 (7.40-12.00) fL Neut % (Auto) 82.0 H (48.0-80.0) % Lymph % (Auto) 8.8 L (16.0-40.0) % [place] % (Auto) 8.4 (0.0-15.0) % Eos % (Auto) 0.6 (0.0-7.0) % Baso % (Auto) 0.2 (0.0-1.5) % Neut # (Auto) 10.0 H (1.4-5.7) K/uL Lymph # (Auto) 1.1 (0.6-2.4) K/uL [place] # (Auto) 1.0 H (0.0-0.8) K/uL Eos # (Auto) 0.1 (0.0-0.7) K/uL Baso # (Auto) 0.0 (0.0-0.1) K/uL Nucleated RBC % 0.0 /100WBC Nucleated RBCs # 0 K/uL ABG pH 7.306 L (7.35-7.45) ABG pCO2 56 H (35-45) mmHG ABG pO2 81 (75-100) mmHG ABG HCO3 28 ABG Total CO2 29 ABG Base Excess 0 (-2.0-2.0) Sodium 140 (136-148) mmol/L Potassium 4.3 (3.5-5.1) mmol/L Chloride 100 (98-107) mmol/L Carbon Dioxide 29.8 (21.0-32.0) mmol/L BUN 12 (7.0-18.0) mg/dL Creatinine 1.1 (0.8-1.3) mg/dL Est Cr Clr Drug Dosing 51.54 mL/min Estimated GFR (MDRD) > 60.0 ml/min Glucose 102 (74-106) mg/dL Calcium 9.0 (8.5-10.1) mg/dL Total Bilirubin 0.5 (0.2-1.0) mg/dL AST 22 (15-37) IU/L ALT 25 (14-63) IU/L Alkaline Phosphatase 48 (46-116) U/L Total Protein 8.1 (6.4-8.2) g/dL Albumin 3.9 (3.4-5.0) g/dL Globulin 4.2 H (2.6-4.0) g/dL Albumin/Globulin Ratio 0.9 (0.9-1.6) Urine Color Urine Appearance Urine pH (5.0-8.0) Ur Specific [place] (1.001-1.035) Urine Protein (NEGATIVE) mg/dL Urine Glucose (UA) (NEGATIVE) mg/dL Urine Ketones (NEGATIVE) mg/dL Urine Occult Blood (NEGATIVE) Urine Nitrite (NEGATIVE) Urine Bilirubin (NEGATIVE) Urine Urobilinogen (<2.0) EU/dL Ur Leukocyte Esterase (NEGATIVE) Urine RBC (0-2/HPF) Urine WBC (0-5/HPF) Ur Epithelial Cells (NONE-FEW) Urine Bacteria (NEGATIVE) 02/15/19 Range/Units 11:43 WBC (4.0-11.0) K/uL RBC (4.50-5.90) M/uL Hgb (13.0-17.0) g/dL Hct (38.0-50.0) % MCV (80.0-98.0) fL MCH (27.0-32.0) pg MCHC (31.0-37.0) g/dL RDW Std Deviation (28.0-62.0) fl RDW Coeff of [place] (11.0-15.0) % Plt Count (150-400) K/uL MPV (7.40-12.00) fL Neut % (Auto) (48.0-80.0) % Lymph % (Auto) (16.0-40.0) % [place] % (Auto) (0.0-15.0) % Eos % (Auto) (0.0-7.0) % Baso % (Auto) (0.0-1.5) % Neut # (Auto) (1.4-5.7) K/uL Lymph # (Auto) (0.6-2.4) K/uL [place] # (Auto) (0.0-0.8) K/uL Eos # (Auto) (0.0-0.7) K/uL Baso # (Auto) (0.0-0.1) K/uL Nucleated RBC % /100WBC Nucleated RBCs # K/uL ABG pH (7.35-7.45) ABG pCO2 (35-45) mmHG ABG pO2 (75-100) mmHG ABG HCO3 ABG Total CO2 ABG Base Excess (-2.0-2.0) Sodium (136-148) mmol/L Potassium (3.5-5.1) mmol/L Chloride (98-107) mmol/L Carbon Dioxide (21.0-32.0) mmol/L BUN (7.0-18.0) mg/dL Creatinine (0.8-1.3) mg/dL Est Cr Clr Drug Dosing mL/min Estimated GFR (MDRD) ml/min Glucose (74-106) mg/dL Calcium (8.5-10.1) mg/dL Total Bilirubin (0.2-1.0) mg/dL AST (15-37) IU/L ALT (14-63) IU/L Alkaline Phosphatase (46-116) U/L Total Protein (6.4-8.2) g/dL Albumin (3.4-5.0) g/dL Globulin (2.6-4.0) g/dL Albumin/Globulin Ratio (0.9-1.6) Urine Color YELLOW Urine Appearance CLEAR Urine pH 6.0 (5.0-8.0) Ur Specific [place] 1.020 (1.001-1.035) Urine Protein TRACE H (NEGATIVE) mg/dL Urine Glucose (UA) NEGATIVE (NEGATIVE) mg/dL Urine Ketones 15 H (NEGATIVE) mg/dL Urine Occult Blood MODERATE H (NEGATIVE) Urine Nitrite NEGATIVE (NEGATIVE) Urine Bilirubin NEGATIVE (NEGATIVE) Urine Urobilinogen 0.2 (<2.0) EU/dL Ur Leukocyte Esterase NEGATIVE (NEGATIVE) Urine RBC 1-5 (0-2/HPF) Urine WBC 0-2 (0-5/HPF) Ur Epithelial Cells RARE (NONE-FEW) Urine Bacteria FEW (NEGATIVE) Meds: Medications Discontinued Medications Generic Name Dose Route Start Last Admin Trade Name Freq PRN Reason Stop Dose Admin Albuterol/Ipratropium 3 ml 02/15/19 10:43 02/15/19 10:50 Duoneb 3.0-0.5 Mg/3 Ml NEB 02/15/19 10:44 3 ml ONETIME ONE Administration Etomidate 30 mg 02/15/19 12:41 02/15/19 13:03 Amidate IVPUSH 02/15/19 12:42 30 mg ONETIME ONE Administration Hydromorphone HCl 0.5 mg 02/15/19 10:46 02/15/19 13:07 Dilaudid IVPUSH 02/15/19 10:47 Not Given ONETIME ONE Sodium Chloride 1,000 mls @ 999 mls/hr 02/15/19 10:43 02/15/19 10:59 Normal Saline IV 02/15/19 11:43 999 mls/hr .Bolus ONE Administration Propofol Confirm 02/15/19 11:15 02/15/19 11:30 Diprivan 100 Ml Administered 02/15/19 11:16 5 mls/hr Dose Administration 100 mls @ as directed .ROUTE .STK-MED ONE Propofol 100 mls @ 1.701 mls/hr 02/15/19 12:45 Diprivan 100 Ml IV TITRATE FLYNN Protocol 5 MCG/KG/MIN Midazolam HCl Confirm 02/15/19 11:35 02/15/19 12:20 Versed 1 Mg/Ml Administered 02/15/19 11:36 Not Given Dose 2 mg .ROUTE .STK-MED ONE Ondansetron HCl 4 mg 02/15/19 10:46 02/15/19 13:04 Zofran IVPUSH 02/15/19 10:47 Not Given ONETIME ONE Sodium Chloride 10 ml 02/15/19 10:43 Saline Flush FLUSH ASDIRECTED PRN Keep Vein Open Sodium Chloride 2.5 ml 02/15/19 10:43 Saline Flush FLUSH ASDIRECTED PRN Keep Vein Open Succinylcholine Chloride 100 mg 02/15/19 12:41 02/15/19 13:03 Quelicin IV 02/15/19 12:42 100 mg NOW STA Administration Departure - Departure Time of Disposition: 19:05 Disposition: DC/Tfer to Acute Hospital 02 Condition: Good Clinical Impression: Respiratory failure Qualifiers: Chronicity: acute on chronic Respiratory failure complication: hypoxia and hypercapnia Qualified Code(s): J96.21 - Acute and chronic respiratory failure with hypoxia; J96.22 - Acute and chronic respiratory failure with hypercapnia - Discharge Information *PRESCRIPTION DRUG MONITORING PROGRAM REVIEWED*: No *COPY OF PRESCRIPTION DRUG MONITORING REPORT IN PATIENT ELOY: No Referrals: Rod Hopson MD [Primary Care Provider] - Forms: ED Department Discharge - My Orders Last 24 Hours: My Active Orders 02/15/19 10:42 Cardiac Monitoring [RC] . DIRECTED EKG Documentation Completion [RC] STAT Oxygen Therapy, ED [RC] ASDIRECTED Pulse Oximetry [RC] ASDIRECTED Saline Lock Insert [OM.PC] Stat 02/15/19 10:43 RT Aerosol Therapy [RC] ASDIRECTED 02/15/19 12:41 RASS Sedation Scale [RC] ASDIRECTED Desired Level of Sedation (RASS) [AST] Click To Edit - Assessment/Plan Last 24 Hours: My Active Orders 02/15/19 10:42 Cardiac Monitoring [RC] . DIRECTED EKG Documentation Completion [RC] STAT Oxygen Therapy, ED [RC] ASDIRECTED Pulse Oximetry [RC] ASDIRECTED Saline Lock Insert [OM.PC] Stat 02/15/19 10:43 RT Aerosol Therapy [RC] ASDIRECTED 02/15/19 12:41 RASS Sedation Scale [RC] ASDIRECTED Desired Level of Sedation (RASS) [AST] Click To Edit
[2019-02-15 11:31] LABS: BLOOD UREA NITROGEN,BUN 12 mg/dL (7.0-18.0); CARBON DIOXIDE,CO2 29.8 mmol/L (21.0-32.0); CHLORIDE,CL 100 mmol/L (98-107); GLUCOSE RANDOM 102 mg/dL (74-106); POTASSIUM,K 4.3 mmol/L (3.5-5.1); SODIUM,NA 140 mmol/L (136-148)
[2019-02-15] MEDS ORDERED: Midazolam 1 MG/ML 2 ML SDV ONE (11:35)
--- NOTE | 2019-02-15 12:17 | CR ---
Chest: Frontal view of the chest was obtained. Comparison: Prior chest x-ray of 09/06/18. Endotracheal tube is seen. Tip lies slightly below the inferior level of the clavicles. Nasogastric tube is seen which courses off the inferior edge of the film into the stomach. Lungs appear hyperinflated but show no acute parenchymal change. Old right lowers rib fractures are noted. No definite acute bony abnormality is appreciated. Heart size and mediastinum are normal. Impression: 1. Probable emphysematous change. 2. Satisfactory position of nasogastric tube and endotracheal tube. 3. Old right lower rib fractures. No acute parenchymal change is seen within the lungs. Diagnostic code #3 MTDD
[2019-02-15] MEDS ORDERED: Succinylcholine 200 MG/10 ML MDV IV STA (12:41)
[2019-02-15] MEDS ORDERED: Etomidate 2 MG/ML 20 ML SDV IVPUSH ONE (12:41)
== END 2019-02-15 12:05 ==
LOC: MW.ED 10:34
DX: J96.21 Acute and chronic respiratory failure with hypoxia (principal); J96.22 Acute and chronic respiratory failure with hypercapnia; I10 Essential (primary) hypertension; J44.9 Chronic obstructive pulmonary disease, unspecified; F41.9 Anxiety disorder, unspecified; Z88.1 Allergy status to other antibiotic agents; Z88.5 Allergy status to narcotic agent; Z88.8 Allergy status to other drugs, medicaments and biological substances; Z79.899 Other long term (current) drug therapy; Z79.51 Long term (current) use of inhaled steroids; Z79.01 Long term (current) use of anticoagulants; Z85.118 Personal history of other malignant neoplasm of bronchus and lung
CPT/HCPCS: 31500; 36415; 36600; 71045; 80053; 81001; 82803; 85025; 93005; 94640; 96360; 99285; J0330; J2704; J3490; J7040; J7620-GY

== ENCOUNTER 2019-03-06 11:07 | Inpatient (IN) | payer MEDICARE, OTHER ==
[2019-03-06] MEDS ORDERED: Albuterol/Ipratropium 3.0-0.5 MG/3 ML Neb Soln NEB ONE (11:09)
[2019-03-06] MEDS ORDERED: Sodium Chloride 0.9% 10 ML Syringe FLUSH PRN (11:09)
[2019-03-06] MEDS ORDERED: Sodium Chloride 0.9% 2.5 ML Syringe FLUSH PRN (11:09)
[2019-03-06] MEDS ORDERED: LORazepam 2 MG/ML SDV IVPUSH ONE (11:12)
--- NOTE | 2019-03-06 11:17 | EDM.PDOC ---
ED HPI GENERAL MEDICAL PROBLEM - General Chief Complaint: Chest Pain Stated Complaint: chest pain Time Seen by Provider: 03/06/19 11:08 Source of Information: Reports: Patient History Limitations: Reports: No Limitations - History of Present Illness INITIAL COMMENTS - FREE TEXT/NARRATIVE: HISTORY AND PHYSICAL: History of present illness: Patient is a 68-year-old male who presents to the emergency room with complaints of shortness of breath and chest pain. Patient has a history of COPD with previous lung cancer who was seen in our emergency room on 02/15/19 and was ultimately intubated and transferred to [facility] for respiratory failure. Patient reports that he started to have midsternal chest pain last evening which has progressively gotten worse. He states that the midsternal chest pain radiates down into his epigastrium. He has generalized abdominal pain in all 4 quadrants. Patient is routinely on 3 L of oxygen per nasal cannula but continued to feel short of breath. Patient denies any fever, chills, headache, change in vision, syncope or near syncope. Denies any neck or back pain. Denies any nausea, vomiting, diarrhea, constipation or dysuria. Has not noted any blood in urine or stool. Patient has been eating and drinking appropriately. Patient also has a history of atrial fibrillation, hypertension, diverticulosis and anxiety. Review of systems: As per history of present illness and below otherwise all systems reviewed and negative. Past medical history: As per history of present illness and as reviewed below otherwise noncontributory. Surgical history: As per history of present illness and as reviewed below otherwise noncontributory. Social history: See social history for further information Family history: As per history of present illness and as reviewed below otherwise noncontributory. Physical exam: General: Well-developed, thin, cachectic and dehydrated appearing male. He does appear to be in mild to moderate respiratory distress. HEENT: Atraumatic, normocephalic, pupils equal and reactive bilaterally, negative for conjunctival pallor or scleral icterus, mucous membranes dry, throat clear, neck supple, nontender, trachea midline. No drooling or trismus noted. No meningeal signs. No hot potato voice noted. Lungs: Poor air exchange throughout, very diminished to the left chest wall, chest tender to palpation, barrel chested. Heart: S1S2, regular rate and rhythm without overt murmur Abdomen: Soft, nondistended, nontender. Negative for masses or hepatosplenomegaly. Negative for costovertebral tenderness. Pelvis: Stable nontender. Skin: Intact, warm, dry. No lesions or rashes noted. Extremities: Atraumatic, moves all extremities per self without difficulty or deficits, negative for cords or calf pain. Neurovascular unremarkable. Neuro: Awake, alert, oriented. Cranial nerves II through XII unremarkable. Cerebellum unremarkable. Motor and sensory unremarkable throughout. Exam nonfocal. Notes: 324 mg of aspirin was given prior to arrival by EMS. X-ray and lab work show a left lower lobe pneumonia. Due to his recent intubation patient was put on vancomycin. Dr. Fraser was consulted on this case and is agreeable to keep this patient for further care and management. Patient is currently stable and vital signs remain within normal limits. Chest pain is currently alleviated. He offers no other complaints or concerns at this time. Diagnostics: CBC, CMP, lipase, troponin, EKG, one view chest, ABG, BC x 2 Therapeutics: IV fluids, Ativan, Impression: Left lower lobe pneumonia Chest pain r/o IA Plan: Patient admitted to med/surg on telemetry Definitive disposition and diagnosis as appropriate pending reevaluation and review of above. chest Pain Score (Numeric/FACES): 10 - Related Data Allergies Allergy/AdvReac Type Severity Reaction Status Date / Time clarithromycin [From Biaxin] Allergy Other Verified 03/06/19 14:19 codeine Allergy Other Verified 02/15/19 10:53 levofloxacin [From Levaquin] Allergy Other Verified 02/15/19 10:53 lisinopril Allergy Other Verified 02/15/19 10:53 methylprednisolone Allergy Tachycardia Verified 02/15/19 10:53 [From Solu-Medrol] morphine Allergy Anxiety Verified 03/06/19 14:56 tramadol Allergy Anxiety Verified 02/15/19 10:53 Home Meds: Home Meds Acetaminophen/HYDROcodone [Swatara 325-5 MG] 1 tab PO Q4HR PRN 07/18/17 [History] Fluticasone/Vilanterol [Breo Ellipta 200-25 Mcg INH] 1 dose INH DAILY 07/18/17 [ History] Cyclobenzaprine [Flexeril] 10 mg PO TID 02/15/19 [History] Apixaban [Eliquis] 5 mg PO BID 03/06/19 [History] Diltiazem HCl [Diltiazem ER] 120 mg PO DAILY 03/06/19 [History] LORazepam 1 mg PO QID 03/06/19 [History] Levalbuterol HCl [Xopenex] 1 ampule NEB Q6H PRN 03/06/19 [History] Mirtazapine 30 mg PO BEDTIME 03/06/19 [History] Prochlorperazine [Compazine] 5 mg PO QID PRN 03/06/19 [History] Roflumilast [Daliresp] 500 mcg PO DAILY 03/06/19 [History] Rosuvastatin Calcium 40 mg PO DAILY 03/06/19 [History] Sertraline HCl 200 mg PO DAILY 03/06/19 [History] Tiotropium Aspers [Spiriva Respimat] 2 puff INH DAILY 03/06/19 [History] Past Medical History HEENT History: Reports: Impaired Vision Cardiovascular History: Reports: Hypertension Respiratory History: Reports: COPD, Other (See Below) Other Respiratory History: lung CA Gastrointestinal History: Reports: Diverticulosis Psychiatric History: Reports: Anxiety Hematologic History: Reports: Anticoagulation Therapy Oncologic (Cancer) History: Reports: Lung - Infectious Disease History Infectious Disease History: Reports: Chicken Pox, Measles, Mumps - Past Surgical History Respiratory Surgical History: Reports: None Social & Family History - Family History Family Medical History: Noncontributory - Caffeine Use Caffeine Use: Reports: Energy Drinks ED ROS GENERAL - Review of Systems Review Of Systems: Comprehensive ROS is negative, except as noted in HPI. ED EXAM, GENERAL - Physical Exam Exam: See Below (See dictation) Course - Vital Signs Last Recorded V/S: Last Vital Signs Temp 98.3 F 03/06/19 13:43 Pulse 115 H 03/06/19 13:43 Resp 20 03/06/19 13:43 BP 102/68 03/06/19 13:43 Pulse Ox 95 03/06/19 13:43 - Orders/Labs/Meds Orders: Active Orders 24 hr Category Date Time Status Admission Status [Patient Status] [ADT] Stat ADT 03/06/19 12:17 Ordered Antiembolic Devices [RC] PER UNIT ROUTINE Care 03/06/19 14:32 Active Cardiac Monitoring [RC] . DIRECTED Care 03/06/19 12:17 Ordered Oxygen Therapy [RC] PRN Care 03/06/19 14:31 Active RT Aerosol Therapy [RC] ASDIRECTED Care 03/06/19 11:09 Active RT Aerosol Therapy [RC] ASDIRECTED Care 03/06/19 14:32 Active Up ad Kari [RC] ASDIRECTED Care 03/06/19 14:31 Active VTE/DVT Education [RC] PER UNIT ROUTINE Care 03/06/19 14:31 Active Vital Signs [RC] Q4H Care 03/06/19 14:31 Active Regular Diet [DIET] Diet 03/06/19 Breakfast Active BASIC METABOLIC PANEL,BMP [CHEM] AM Lab 03/07/19 05:11 Ordered BASIC METABOLIC PANEL,BMP [CHEM] AM Lab 03/08/19 05:11 Ordered BASIC METABOLIC PANEL,BMP [CHEM] AM Lab 03/09/19 05:11 Ordered CBC WITH AUTO DIFF [HEME] AM Lab 03/07/19 05:11 Ordered CBC WITH AUTO DIFF [HEME] AM Lab 03/08/19 05:11 Ordered CBC WITH AUTO DIFF [HEME] AM Lab 03/09/19 05:11 Ordered CULTURE BLOOD [BC] Stat Lab 03/06/19 11:57 Received CULTURE BLOOD [BC] Stat Lab 03/06/19 12:05 Received CULTURE SPUTUM + SMEAR [RM] Stat Lab 03/06/19 14:45 Results VANCOMYCIN TROUGH [CHEM] Routine Lab 03/09/19 12:00 Ordered Acetaminophen/HYDROcodone [Swatara 325-5 MG] Med 03/06/19 14:29 Active 1 tab PO TID PRN Albuterol/Ipratropium [DuoNeb 3.0-0.5 MG/3 ML] Med 03/06/19 14:31 Active 3 ml NEB Q4HRRT PRN Apixaban [Eliquis] Med 03/06/19 21:00 Active 5 mg PO BID Diltiazem [Cardizem CD] Med 03/07/19 09:00 Active 120 mg PO DAILY Doxycycline [Vibramycin] 100 mg Med 03/06/19 14:46 Active Sodium Chloride 0.9% [Normal Saline] 100 ml IV Q12H LORazepam [Ativan] Med 03/06/19 18:00 Active 1 mg PO QID Mirtazapine [Remeron] Med 03/06/19 21:00 Active 30 mg PO BEDTIME Ondansetron [Zofran] Med 03/06/19 14:31 Active 4 mg IVPUSH Q4H PRN Pantoprazole [ProTONIX IV] 40 mg Med 03/06/19 14:30 Active Sodium Chloride 0.9% [Normal Saline] 10 ml IV Q24H Patient's Own Medication [Ptom] Med 03/07/19 09:00 Active 1 each INH DAILY Patient's Own Medication [Ptom] Med 03/07/19 09:00 Active 1 each PO DAILY Piperacillin/Tazobactam [Piperacil-Tazobact] 3.375 gm Med 03/06/19 12:30 Active Sodium Chloride 0.9% [Normal Saline] 50 ml IV Q6H Promethazine [Phenergan] Med 03/06/19 14:31 Active 25 mg IM Q6H PRN Rosuvastatin [Crestor] Med 03/07/19 09:00 Active 40 mg PO DAILY Sertraline [Zoloft] Med 03/07/19 09:00 Active 200 mg PO DAILY Sodium Chloride 0.9% [Normal Saline] 1,000 ml Med 03/06/19 14:45 Active IV ASDIRECTED Sodium Chloride 0.9% [Normal Saline] 1,000 ml Med 03/06/19 11:18 Active IV STAT Sodium Chloride 0.9% [Saline Flush] Med 03/06/19 11:09 Active 10 ml FLUSH ASDIRECTED PRN Sodium Chloride 0.9% [Saline Flush] Med 03/06/19 11:09 Active 2.5 ml FLUSH ASDIRECTED PRN Vancomycin [Vancocin] 1 gm Med 03/07/19 12:30 Active Sodium Chloride 0.9% [Normal Saline (AdvBag)] 250 ml IV Q24H Blood Culture x2 Reflex Set [OM.PC] Stat Oth 03/06/19 11:40 Ordered Patient Old Record [Obtain Past Medical Record] [OM.PC] Oth 03/06/19 14:41 Active Routine Saline Lock Insert [OM.PC] Stat Oth 03/06/19 11:09 Ordered Sequential Compression Device [OM.PC] Per Unit Routine Oth 03/06/19 14:31 Ordered Resuscitation Status Routine Resus Stat 03/06/19 14:31 Ordered Medication Orders Hydrocodone Bitart/Acetaminophen (Swatara 325-5 Mg) 1 tab PO TID PRN PRN Reason: Pain Last Admin: 03/06/19 14:55 Dose: 1 tab Albuterol/Ipratropium (Duoneb 3.0-0.5 Mg/3 Ml) 3 ml NEB Q4HRRT PRN PRN Reason: Shortness Of Breath/wheezing Apixaban (Eliquis) 5 mg PO BID [facility] Diltiazem HCl (Cardizem Cd) 120 mg PO DAILY FLYNN Sodium Chloride (Normal Saline) 1,000 mls @ 100 mls/hr IV STAT ONE Stop: 03/06/19 21:17 Last Admin: 03/06/19 11:32 Dose: 100 mls/hr Piperacillin Sod/Tazobactam (Sod 3.375 gm/ Sodium Chloride) 50 mls @ 100 mls/ hr IV Q6H FLYNN Last Admin: 03/06/19 14:30 Dose: 100 mls/hr Vancomycin HCl 1 gm/ Sodium (Chloride) 250 mls @ 250 mls/hr IV Q24H FLYNN Pantoprazole Sodium 40 mg/ (Sodium Chloride) 10 mls @ 300 mls/hr IV Q24H FLYNN Last Admin: 03/06/19 15:14 Dose: 300 mls/hr Sodium Chloride (Normal Saline) 1,000 mls @ 125 mls/hr IV ASDIRECTED FLYNN Last Admin: 03/06/19 15:02 Dose: 125 mls/hr Doxycycline Hyclate 100 mg/ (Sodium Chloride) 100 mls @ 100 mls/hr IV Q12H FLYNN Last Admin: 03/06/19 15:55 Dose: 100 mls/hr Lorazepam (Ativan) 1 mg PO QID [facility] Mirtazapine (Remeron) 30 mg PO BEDTIME [facility] Ondansetron HCl (Zofran) 4 mg IVPUSH Q4H PRN PRN Reason: Nausea Last Admin: 03/06/19 16:02 Dose: 4 mg Fluticasone/ (Vilanterol) 1 each INH DAILY [facility] Roflumilast 500 Mcg 1 each PO DAILY [facility] Promethazine HCl (Phenergan) 25 mg IM Q6H PRN PRN Reason: Nausea Rosuvastatin Calcium (Crestor) 40 mg PO DAILY [facility] Sertraline HCl (Zoloft) 200 mg PO DAILY [facility] Sodium Chloride (Saline Flush) 10 ml FLUSH ASDIRECTED PRN PRN Reason: Keep Vein Open Last Admin: 03/06/19 11:23 Dose: 10 ml Sodium Chloride (Saline Flush) 2.5 ml FLUSH ASDIRECTED PRN PRN Reason: Keep Vein Open Last Admin: 03/06/19 11:23 Dose: 2.5 ml Labs: Laboratory Tests 03/06/19 03/06/19 03/06/19 Range/Units 11:10 11:10 11:10 WBC 27.47 H (4.0-11.0) K/uL RBC 3.59 L (4.50-5.90) M/uL Hgb 10.5 L (13.0-17.0) g/dL Hct 34.6 L (38.0-50.0) % MCV 96.4 (80.0-98.0) fL MCH 29.2 (27.0-32.0) pg MCHC 30.3 L (31.0-37.0) g/dL RDW Std Deviation 51.0 (28.0-62.0) fl RDW Coeff of Charly 15 (11.0-15.0) % Plt Count 459 H (150-400) K/uL MPV 9.40 (7.40-12.00) fL Neut % (Auto) 92.5 H (48.0-80.0) % Lymph % (Auto) 2.0 L (16.0-40.0) % Pickens % (Auto) 5.5 (0.0-15.0) % Eos % (Auto) 0.0 (0.0-7.0) % Baso % (Auto) 0.0 (0.0-1.5) % Neut # (Auto) 25.4 H (1.4-5.7) K/uL Lymph # (Auto) 0.5 L (0.6-2.4) K/uL Pickens # (Auto) 1.5 H (0.0-0.8) K/uL Eos # (Auto) 0.0 (0.0-0.7) K/uL Baso # (Auto) 0.0 (0.0-0.1) K/uL Nucleated RBC % 0.0 /100WBC Nucleated RBCs # 0 K/uL INR 1.02 ABG pH (7.35-7.45) ABG pCO2 (35-45) mmHG ABG pO2 (75-100) mmHG ABG HCO3 (22-26) mEq/L ABG Total CO2 ABG Base Excess (-2.0-2.0) Lactate (0.20-2.00) mmol/L Sodium 140 (136-148) mmol/L Potassium 4.1 (3.5-5.1) mmol/L Chloride 101 (98-107) mmol/L Carbon Dioxide 35.9 H (21.0-32.0) mmol/L BUN 25 H (7.0-18.0) mg/dL Creatinine 1.2 (0.8-1.3) mg/dL Est Cr Clr Drug Dosing 42.71 mL/min Estimated GFR (MDRD) > 60.0 ml/min Glucose 147 H (74-106) mg/dL Calcium 8.9 (8.5-10.1) mg/dL Total Bilirubin 0.7 (0.2-1.0) mg/dL AST 181 H (15-37) IU/L ALT 123 H (14-63) IU/L Alkaline Phosphatase 70 (46-116) U/L Troponin I < 0.050 (0.000-0.056) ng/mL Total Protein 6.4 (6.4-8.2) g/dL Albumin 2.1 L (3.4-5.0) g/dL Globulin 4.3 H (2.6-4.0) g/dL Albumin/Globulin Ratio 0.5 L (0.9-1.6) Lipase (73-393) U/L 03/06/19 03/06/19 03/06/19 Range/Units 11:10 11:15 11:17 WBC (4.0-11.0) K/uL RBC (4.50-5.90) M/uL Hgb (13.0-17.0) g/dL Hct (38.0-50.0) % MCV (80.0-98.0) fL MCH (27.0-32.0) pg MCHC (31.0-37.0) g/dL RDW Std Deviation (28.0-62.0) fl RDW Coeff of Charly (11.0-15.0) % Plt Count (150-400) K/uL MPV (7.40-12.00) fL Neut % (Auto) (48.0-80.0) % Lymph % (Auto) (16.0-40.0) % Pickens % (Auto) (0.0-15.0) % Eos % (Auto) (0.0-7.0) % Baso % (Auto) (0.0-1.5) % Neut # (Auto) (1.4-5.7) K/uL Lymph # (Auto) (0.6-2.4) K/uL Pickens # (Auto) (0.0-0.8) K/uL Eos # (Auto) (0.0-0.7) K/uL Baso # (Auto) (0.0-0.1) K/uL Nucleated RBC % /100WBC Nucleated RBCs # K/uL INR ABG pH 7.433 (7.35-7.45) ABG pCO2 57 H (35-45) mmHG ABG pO2 79 (75-100) mmHG ABG HCO3 38 H (22-26) mEq/L ABG Total CO2 35.4 ABG Base Excess 11.9 H (-2.0-2.0) Lactate 1.7 (0.20-2.00) mmol/L Sodium (136-148) mmol/L Potassium (3.5-5.1) mmol/L Chloride (98-107) mmol/L Carbon Dioxide (21.0-32.0) mmol/L BUN (7.0-18.0) mg/dL Creatinine (0.8-1.3) mg/dL Est Cr Clr Drug Dosing mL/min Estimated GFR (MDRD) ml/min Glucose (74-106) mg/dL Calcium (8.5-10.1) mg/dL Total Bilirubin (0.2-1.0) mg/dL AST (15-37) IU/L ALT (14-63) IU/L Alkaline Phosphatase (46-116) U/L Troponin I (0.000-0.056) ng/mL Total Protein (6.4-8.2) g/dL Albumin (3.4-5.0) g/dL Globulin (2.6-4.0) g/dL Albumin/Globulin Ratio (0.9-1.6) Lipase 321 (73-393) U/L Meds: Medications Generic Name Dose Route Start Last Admin Trade Name Freq PRN Reason Stop Dose Admin Hydrocodone Bitart/Acetaminophen 1 tab 03/06/19 14:29 03/06/19 14:55 Swatara 325-5 Mg PO 1 tab TID PRN Administration Pain Albuterol/Ipratropium 3 ml 03/06/19 14:31 Duoneb 3.0-0.5 Mg/3 Ml NEB Q4HRRT PRN Shortness Of Breath/wheezing Apixaban 5 mg 03/06/19 21:00 Eliquis PO BID FLYNN Diltiazem HCl 120 mg 03/07/19 09:00 Cardizem Cd PO DAILY FLYNN Sodium Chloride 1,000 mls @ 100 mls/hr 03/06/19 11:18 03/06/19 11:32 Normal Saline IV 03/06/19 21:17 100 mls/hr STAT ONE Administration Piperacillin Sod/Tazobactam 50 mls @ 100 mls/hr 03/06/19 12:30 03/06/19 14:30 Sod 3.375 gm/ Sodium Chloride IV 100 mls/hr Q6H FLYNN Administration Vancomycin HCl 1 gm/ Sodium 250 mls @ 250 mls/hr 03/07/19 12:30 Chloride IV Q24H FLYNN Pantoprazole Sodium 40 mg/ 10 mls @ 300 mls/hr 03/06/19 14:30 03/06/19 15:14 Sodium Chloride IV 300 mls/hr Q24H FLYNN Administration Sodium Chloride 1,000 mls @ 125 mls/hr 03/06/19 14:45 03/06/19 15:02 Normal Saline IV 125 mls/hr ASDIRECTED FLYNN Administration Doxycycline Hyclate 100 mg/ 100 mls @ 100 mls/hr 03/06/19 14:46 03/06/19 15: 55 Sodium Chloride IV 100 mls/hr Q12H FLYNN Administration Lorazepam 1 mg 03/06/19 18:00 Ativan PO QID FLYNN Mirtazapine 30 mg 03/06/19 21:00 Remeron PO BEDTIME [facility] Ondansetron HCl 4 mg 03/06/19 14:31 03/06/19 16:02 Zofran IVPUSH 4 mg Q4H PRN Administration Nausea Fluticasone/ 1 each 03/07/19 09:00 Vilanterol INH DAILY [facility] Roflumilast 500 Mcg 1 each 03/07/19 09:00 PO DAILY FL[facility]NN Promethazine HCl 25 mg 03/06/19 14:31 Phenergan IM Q6H PRN Nausea Rosuvastatin Calcium 40 mg 03/07/19 09:00 Crestor PO DAILY FLYNN Sertraline HCl 200 mg 03/07/19 09:00 Zoloft PO DAILY [facility] Sodium Chloride 10 ml 03/06/19 11:09 03/06/19 11:23 Saline Flush FLUSH 10 ml ASDIRECTED PRN Administration Keep Vein Open Sodium Chloride 2.5 ml 03/06/19 11:09 03/06/19 11:23 Saline Flush FLUSH 2.5 ml ASDIRECTED PRN Administration Keep Vein Open Discontinued Medications Generic Name Dose Route Start Last Admin Trade Name Freq PRN Reason Stop Dose Admin Albuterol/Ipratropium 3 ml 03/06/19 11:09 03/06/19 11:22 Duoneb 3.0-0.5 Mg/3 Ml NEB 03/06/19 11:10 3 ml ONETIME ONE Administration Vancomycin HCl 1 gm/ Sodium 250 mls @ 166 mls/hr 03/06/19 11:58 03/06/19 12: 27 Chloride IV 03/06/19 13:28 166 mls/hr ONETIME ONE Administration Lorazepam 1 mg 03/06/19 11:12 03/06/19 11:23 Ativan IVPUSH 03/06/19 11:13 1 mg ONETIME ONE Administration Morphine Sulfate 2 mg 03/06/19 14:31 Morphine IVPUSH 03/07/19 14:31 Q4H PRN Pain (severe 7-10) Vancomycin HCl 1 dose 03/06/19 13:45 Pharmacy To Dose - Vancomycin .XX ASDIRECTED FLYNN Departure - Departure Time of Disposition: 16:53 Disposition: Admitted As Inpatient 66 Clinical Impression: Chest pain, rule out acute myocardial infarction Pneumonia Qualifiers: Pneumonia type: due to unspecified organism Laterality: left Lung location: lower lobe of lung Qualified Code(s): J18.9 - Pneumonia, unspecified organism - Discharge Information Referrals: PCP,Unobtain [Primary Care Provider] - Forms: ED Department Discharge - My Orders Last 24 Hours: My Active Orders 03/06/19 11:09 RT Aerosol Therapy [RC] ASDIRECTED Sodium Chloride 0.9% [Saline Flush] 10 ml FLUSH ASDIRECTED PRN Sodium Chloride 0.9% [Saline Flush] 2.5 ml FLUSH ASDIRECTED PRN Saline Lock Insert [OM.PC] Stat 03/06/19 11:18 Sodium Chloride 0.9% [Normal Saline] 1,000 ml IV STAT 03/06/19 11:40 Blood Culture x2 Reflex Set [OM.PC] Stat 03/06/19 11:57 CULTURE BLOOD [BC] Stat 03/06/19 12:05 CULTURE BLOOD [BC] Stat 03/06/19 12:17 Admission Status [Patient Status] [ADT] Stat Cardiac Monitoring [RC] . DIRECTED - Assessment/Plan Last 24 Hours: My Active Orders 03/06/19 11:09 RT Aerosol Therapy [RC] ASDIRECTED Sodium Chloride 0.9% [Saline Flush] 10 ml FLUSH ASDIRECTED PRN Sodium Chloride 0.9% [Saline Flush] 2.5 ml FLUSH ASDIRECTED PRN Saline Lock Insert [OM.PC] Stat 03/06/19 11:18 Sodium Chloride 0.9% [Normal Saline] 1,000 ml IV STAT 03/06/19 11:40 Blood Culture x2 Reflex Set [OM.PC] Stat 03/06/19 11:57 CULTURE BLOOD [BC] Stat 03/06/19 12:05 CULTURE BLOOD [BC] Stat 03/06/19 12:17 Admission Status [Patient Status] [ADT] Stat Cardiac Monitoring [RC] . DIRECTED
[2019-03-06] MEDS ORDERED: Sodium Chloride 0.9% 1,000 ML IV ONE (11:18)
[2019-03-06 11:50] LABS: BLOOD UREA NITROGEN,BUN 25 mg/dL (7.0-18.0); CARBON DIOXIDE,CO2 35.9 mmol/L (21.0-32.0); CHLORIDE,CL 101 mmol/L (98-107); GLUCOSE RANDOM 147 mg/dL (74-106); POTASSIUM,K 4.1 mmol/L (3.5-5.1); SODIUM,NA 140 mmol/L (136-148)
--- NOTE | 2019-03-06 12:50 | CR ---
EXAM DATE: 03/06/19 PATIENT'S AGE: 68 Chest: Portable view of the chest was obtained. Comparison: Prior chest x-ray of 02/15/19. Increased density within the left base is seen. Lungs are otherwise hyperinflated without other acute change. Several old right-sided rib fractures are noted. Heart size is normal. Old right clavicle fracture is noted. Impression: 1. Increased density within the left lung base most likely representing pneumonia. Please correlate that patient has infectious symptoms. 2. Emphysematous change and other findings believed to be incidental as noted above. Diagnostic code #3 Report Signed by Proxy. MTDD
[2019-03-06] MEDS ORDERED: Pantoprazole 40 MG in Sodium Chloride 0.9% 10 ML IV SCH (14:30)
[2019-03-06] MEDS ORDERED: Doxycycline 100 MG in Sodium Chloride 0.9% 100 ML IV SCH (14:30)
[2019-03-06] MEDS: Piperacillin/Tazobactam 3.375 GM in Sodium Chloride 0.9% 50 ML IV SCH ×2 (14:30→19:17)
[2019-03-06] MEDS ORDERED: Morphine 10 MG/ML Syringe IVPUSH PRN (14:31)
[2019-03-06] MEDS ORDERED: Promethazine 25 MG/ML SDV IM PRN (14:31)
[2019-03-06] MEDS ORDERED: Ondansetron 4 MG/2 ML SDV IVPUSH PRN (14:31)
[2019-03-06] MEDS ORDERED: Albuterol/Ipratropium 3.0-0.5 MG/3 ML Neb Soln NEB PRN (14:31)
--- NOTE | 2019-03-06 14:39 | PCM.HP.2 ---
H&P History of Present Illness - General Date of Service: 03/06/19 Admit Problem/Dx: Admission Diagnosis/Problem Admission Diagnosis/Problem Pneumonia - History of Present Illness Initial Comments - Free Text/Narative: 68 yo male with pmh of COPD, anxiety disorder, atrial fibrillation who has been struggling with a pneumonia for the past three weeks. He hospitalized in [place] in the ICU on mechanical ventilator. He was readmitted and then discharged a week ago on home oxygen and steroid taper. He has not left his house since his discharge. He reports increasing shortness of breath, subjective fevers and chills and productive cough. He reports pleuritic left lower chest pain. In the ED he was noted to have a WBC of 27,000 and CXR reported dense left lower opacity. Patient reports he has had CAT scans in [place]. He reports he has a history atrial fibrillation is on Eliquis and Diltiazem. He says his heart rate is normally 120s-130s. He has a history of lung cancer and is s/p radiation. He reports he is in remission and he a has a PET scan scheduled for next month. 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 chest Pain Score (Numeric/FACES): 10 - Related Data Allergies/Adverse Reactions: Allergies Allergy/AdvReac Type Severity Reaction Status Date / Time clarithromycin [From Biaxin] Allergy Other Verified 03/06/19 14:19 codeine Allergy Other Verified 02/15/19 10:53 levofloxacin [From Levaquin] Allergy Other Verified 02/15/19 10:53 lisinopril Allergy Other Verified 02/15/19 10:53 methylprednisolone Allergy Tachycardia Verified 02/15/19 10:53 [From Solu-Medrol] morphine Allergy Other Verified 02/15/19 10:53 tramadol Allergy Anxiety Verified 02/15/19 10:53 Home Medications: Home Meds Acetaminophen/HYDROcodone [Purvis 325-5 MG] 1 tab PO TID PRN 07/18/17 [History] Fluticasone/Vilanterol [Breo Ellipta 200-25 Mcg INH] 1 dose INH DAILY 07/18/17 [ History] Cyclobenzaprine [Flexeril] 10 mg PO TID 02/15/19 [History] Apixaban [Eliquis] 5 mg PO BID 03/06/19 [History] Diltiazem HCl [Diltiazem ER] 120 mg PO DAILY 03/06/19 [History] LORazepam 1 mg PO QID 03/06/19 [History] Levalbuterol HCl [Xopenex] 1 ampule NEB Q6H PRN 03/06/19 [History] Mirtazapine 30 mg PO BEDTIME 03/06/19 [History] Prochlorperazine [Compazine] 5 mg PO QID PRN 03/06/19 [History] Roflumilast [Daliresp] 500 mcg PO DAILY 03/06/19 [History] Rosuvastatin Calcium 40 mg PO DAILY 03/06/19 [History] Sertraline HCl 200 mg PO DAILY 03/06/19 [History] Tiotropium [place] [Spiriva Respimat] 2 puff INH DAILY 03/06/19 [History] Past Medical History HEENT History: Reports: Impaired Vision Cardiovascular History: Reports: Afib Respiratory History: Reports: COPD, Pneumonia, Recurrent, Other (See Below) Other Respiratory History: lung CA recently hospitalized in [place] with trach Gastrointestinal History: Reports: Diverticulosis Genitourinary History: Reports: Prostate Disorder Musculoskeletal History: Reports: Arthritis, Fracture Psychiatric History: Reports: Anxiety Hematologic History: Reports: Anticoagulation Therapy Oncologic (Cancer) History: Reports: Lung - Infectious Disease History Infectious Disease History: Reports: Chicken Pox, Measles, Mumps - Past Surgical History HEENT Surgical History: Reports: None Cardiovascular Surgical History: Reports: None Respiratory Surgical History: Reports: None GI Surgical History: Reports: None Male Surgical History: Reports: Prostate Biopsy Other Oncologic Surgeries/Procedures: radiation to lung ca Social & Family History - Family History Family Medical History: Noncontributory - Tobacco Use Smoking Status *Q: Former Smoker Years of Tobacco use: 30 Packs/Tins Daily: 0.5 Used Tobacco, but Quit: Yes Month/Year Tobacco Last Used: jan 2019 Tobacco Use Comment: using nicoderm 14 patches Second Hand Smoke Exposure: No - Caffeine Use Caffeine Use: Reports: Energy Drinks - Recreational Drug Use Recreational Drug Use: No H&P Review of Systems - Review of Systems: Review Of Systems: Comprehensive ROS is negative, except as noted in HPI. Exam - Exam Exam: See Below - Vital Signs Vital Signs: Last Vital Signs Temp 36.8 C 03/06/19 13:43 Pulse 115 H 03/06/19 13:43 Resp 20 03/06/19 13:43 BP 102/68 03/06/19 13:43 Pulse Ox 95 03/06/19 13:43 Weight: 53.3 kg - Exam General: Alert, Other (cachectic) HEENT: Conjunctiva Clear, Mucosa Moist & [place] Neck: Supple Lungs: Decreased Breath Sounds Cardiovascular: Irregular Rhythm, Tachycardia GI/Abdominal Exam: Normal Bowel Sounds, Soft, Non-Tender, No Distention Extremities: Non-Tender, No Pedal Edema - Patient Data Lab Results Last 24 hrs: Laboratory Results - last 24 hr 03/06/19 03/06/19 03/06/19 Range/Units 11:10 11:10 11:10 WBC 27.47 H (4.0-11.0) K/uL RBC 3.59 L (4.50-5.90) M/uL Hgb 10.5 L (13.0-17.0) g/dL Hct 34.6 L (38.0-50.0) % MCV 96.4 (80.0-98.0) fL MCH 29.2 (27.0-32.0) pg MCHC 30.3 L (31.0-37.0) g/dL RDW Std Deviation 51.0 (28.0-62.0) fl RDW Coeff of Charly 15 (11.0-15.0) % Plt Count 459 H (150-400) K/uL MPV 9.40 (7.40-12.00) fL Neut % (Auto) 92.5 H (48.0-80.0) % Lymph % (Auto) 2.0 L (16.0-40.0) % Dewitt % (Auto) 5.5 (0.0-15.0) % Eos % (Auto) 0.0 (0.0-7.0) % Baso % (Auto) 0.0 (0.0-1.5) % Neut # (Auto) 25.4 H (1.4-5.7) K/uL Lymph # (Auto) 0.5 L (0.6-2.4) K/uL Dewitt # (Auto) 1.5 H (0.0-0.8) K/uL Eos # (Auto) 0.0 (0.0-0.7) K/uL Baso # (Auto) 0.0 (0.0-0.1) K/uL Nucleated RBC % 0.0 /100WBC Nucleated RBCs # 0 K/uL INR 1.02 ABG pH (7.35-7.45) ABG pCO2 (35-45) mmHG ABG pO2 (75-100) mmHG ABG HCO3 (22-26) mEq/L ABG Total CO2 ABG Base Excess (-2.0-2.0) Lactate (0.20-2.00) mmol/L Sodium 140 (136-148) mmol/L Potassium 4.1 (3.5-5.1) mmol/L Chloride 101 (98-107) mmol/L Carbon Dioxide 35.9 H (21.0-32.0) mmol/L BUN 25 H (7.0-18.0) mg/dL Creatinine 1.2 (0.8-1.3) mg/dL Est Cr Clr Drug Dosing 42.71 mL/min Estimated GFR (MDRD) > 60.0 ml/min Glucose 147 H (74-106) mg/dL Calcium 8.9 (8.5-10.1) mg/dL Total Bilirubin 0.7 (0.2-1.0) mg/dL AST 181 H (15-37) IU/L ALT 123 H (14-63) IU/L Alkaline Phosphatase 70 (46-116) U/L Troponin I < 0.050 (0.000-0.056) ng/mL Total Protein 6.4 (6.4-8.2) g/dL Albumin 2.1 L (3.4-5.0) g/dL Globulin 4.3 H (2.6-4.0) g/dL Albumin/Globulin Ratio 0.5 L (0.9-1.6) Lipase (73-393) U/L 03/06/19 03/06/19 03/06/19 Range/Units 11:10 11:15 11:17 WBC (4.0-11.0) K/uL RBC (4.50-5.90) M/uL Hgb (13.0-17.0) g/dL Hct (38.0-50.0) % MCV (80.0-98.0) fL MCH (27.0-32.0) pg MCHC (31.0-37.0) g/dL RDW Std Deviation (28.0-62.0) fl RDW Coeff of Charly (11.0-15.0) % Plt Count (150-400) K/uL MPV (7.40-12.00) fL Neut % (Auto) (48.0-80.0) % Lymph % (Auto) (16.0-40.0) % Dewitt % (Auto) (0.0-15.0) % Eos % (Auto) (0.0-7.0) % Baso % (Auto) (0.0-1.5) % Neut # (Auto) (1.4-5.7) K/uL Lymph # (Auto) (0.6-2.4) K/uL [place] # (Auto) (0.0-0.8) K/uL Eos # (Auto) (0.0-0.7) K/uL Baso # (Auto) (0.0-0.1) K/uL Nucleated RBC % /100WBC Nucleated RBCs # K/uL INR ABG pH 7.433 (7.35-7.45) ABG pCO2 57 H (35-45) mmHG ABG pO2 79 (75-100) mmHG ABG HCO3 38 H (22-26) mEq/L ABG Total CO2 35.4 ABG Base Excess 11.9 H (-2.0-2.0) Lactate 1.7 (0.20-2.00) mmol/L Sodium (136-148) mmol/L Potassium (3.5-5.1) mmol/L Chloride (98-107) mmol/L Carbon Dioxide (21.0-32.0) mmol/L BUN (7.0-18.0) mg/dL Creatinine (0.8-1.3) mg/dL Est Cr Clr Drug Dosing mL/min Estimated GFR (MDRD) ml/min Glucose (74-106) mg/dL Calcium (8.5-10.1) mg/dL Total Bilirubin (0.2-1.0) mg/dL AST (15-37) IU/L ALT (14-63) IU/L Alkaline Phosphatase (46-116) U/L Troponin I (0.000-0.056) ng/mL Total Protein (6.4-8.2) g/dL Albumin (3.4-5.0) g/dL Globulin (2.6-4.0) g/dL Albumin/Globulin Ratio (0.9-1.6) Lipase 321 (73-393) U/L Result Diagrams: 03/06/19 11:10 03/06/19 11:10 Problem List Initiated/Reviewed/Updated: Yes Orders Last 24hrs: Active Orders 24 hr Category Date Time Status Admission Status [Patient Status] [ADT] Stat ADT 03/06/19 12:17 Active Antiembolic Devices [RC] PER UNIT ROUTINE Care 03/06/19 14:32 Ordered Cardiac Monitoring [RC] . DIRECTED Care 03/06/19 12:17 Active Oxygen Therapy [RC] PRN Care 03/06/19 14:31 Ordered RT Aerosol Therapy [RC] ASDIRECTED Care 03/06/19 11:09 Active RT Aerosol Therapy [RC] ASDIRECTED Care 03/06/19 14:32 Ordered Up ad Kari [RC] ASDIRECTED Care 03/06/19 14:31 Ordered VTE/DVT Education [RC] PER UNIT ROUTINE Care 03/06/19 14:31 Ordered Vital Signs [RC] Q4H Care 03/06/19 14:31 Ordered Regular Diet [DIET] Diet 03/06/19 Breakfast Ordered BASIC METABOLIC PANEL,BMP [CHEM] AM Lab 03/07/19 05:11 Ordered BASIC METABOLIC PANEL,BMP [CHEM] AM Lab 03/08/19 05:11 Ordered BASIC METABOLIC PANEL,BMP [CHEM] AM Lab 03/09/19 05:11 Ordered CBC WITH AUTO DIFF [HEME] AM Lab 03/07/19 05:11 Ordered CBC WITH AUTO DIFF [HEME] AM Lab 03/08/19 05:11 Ordered CBC WITH AUTO DIFF [HEME] AM Lab 03/09/19 05:11 Ordered CULTURE BLOOD [BC] Stat Lab 03/06/19 11:57 Received CULTURE BLOOD [BC] Stat Lab 03/06/19 12:05 Received CULTURE SPUTUM + SMEAR [RM] Stat Lab 03/06/19 14:31 Ordered Acetaminophen/HYDROcodone [Purvis 325-5 MG] Med 03/06/19 14:29 Ordered 1 tab PO TID PRN Albuterol/Ipratropium [DuoNeb 3.0-0.5 MG/3 ML] Med 03/06/19 14:31 Ordered 3 ml NEB Q4HRRT PRN Apixaban [Eliquis] Med 03/06/19 21:00 Ordered 5 mg PO BID Diltiazem HCl [Diltiazem 12Hr ER] Med 03/07/19 09:00 Ordered 120 mg PO DAILY Doxycycline [Vibramycin] 100 mg Med 03/06/19 14:30 Ordered Sodium Chloride 0.9% [Normal Saline] 100 ml IV Q12H Fluticasone/Vilanterol Med 03/07/19 09:00 Ordered 1 dose INH DAILY LORazepam [Ativan] Med 03/06/19 18:00 Ordered 1 mg PO QID Mirtazapine Med 03/06/19 21:00 Ordered 30 mg PO BEDTIME Morphine Med 03/06/19 14:31 Ordered 2 mg IVPUSH Q4H PRN Ondansetron [Zofran] Med 03/06/19 14:31 Ordered 4 mg IVPUSH Q4H PRN Pantoprazole [ProTONIX IV] 40 mg Med 03/06/19 14:30 Ordered Sodium Chloride 0.9% [Normal Saline] 10 ml IV Q24H Piperacillin/Tazobactam [Piperacil-Tazobact] 3.375 gm Med 03/06/19 12:30 Active Sodium Chloride 0.9% [Normal Saline] 50 ml IV Q6H Promethazine [Phenergan] Med 03/06/19 14:31 Ordered 25 mg IM Q6H PRN Roflumilast Med 03/07/19 09:00 Ordered 500 mcg PO DAILY Rosuvastatin Calcium [Rosuvastatin Calcium] Med 03/07/19 09:00 Ordered 40 mg PO DAILY Sertraline [Zoloft] Med 03/07/19 09:00 Ordered 200 mg PO DAILY Sodium Chloride 0.9% @ 125 MLS/HR (1000ml) Med 03/06/19 14:45 Ordered Sodium Chloride 0.9% [Normal Saline] 1,000 ml IV ASDIRECTED Sodium Chloride 0.9% [Normal Saline] 1,000 ml Med 03/06/19 11:18 Active IV STAT Sodium Chloride 0.9% [Saline Flush] Med 03/06/19 11:09 Active 10 ml FLUSH ASDIRECTED PRN Sodium Chloride 0.9% [Saline Flush] Med 03/06/19 11:09 Active 2.5 ml FLUSH ASDIRECTED PRN Vancomycin [Vancocin] 1 gm Med 03/07/19 12:30 Active Sodium Chloride 0.9% [Normal Saline (AdvBag)] 250 ml IV Q24H Blood Culture x2 Reflex Set [OM.PC] Stat Oth 03/06/19 11:40 Ordered Saline Lock Insert [OM.PC] Stat Oth 03/06/19 11:09 Ordered Sequential Compression Device [OM.PC] Per Unit Routine Oth 03/06/19 14:31 Ordered Resuscitation Status Routine Resus Stat 03/06/19 14:31 Ordered Medication Orders Hydrocodone Bitart/Acetaminophen (Purvis 325-5 Mg) 1 tab PO TID PRN PRN Reason: Pain Apixaban (Eliquis) 5 mg PO BID FLYNN Sodium Chloride (Normal Saline) 1,000 mls @ 100 mls/hr IV STAT ONE Stop: 03/06/19 21:17 Last Admin: 03/06/19 11:32 Dose: 100 mls/hr Piperacillin Sod/Tazobactam (Sod 3.375 gm/ Sodium Chloride) 50 mls @ 100 mls/ hr IV Q6H FLYNN Last Admin: 03/06/19 14:30 Dose: 100 mls/hr Doxycycline Hyclate 100 mg/ (Sodium Chloride) 100 mls @ 100 mls/hr IV Q12H FLYNN Vancomycin HCl 1 gm/ Sodium (Chloride) 250 mls @ 250 mls/hr IV Q24H FLYNN Pantoprazole Sodium 40 mg/ (Sodium Chloride) 10 mls @ 300 mls/hr IV Q24H FLYNN Lorazepam (Ativan) 1 mg PO QID FLYNN Non-Formulary Medication (Diltiazem Hcl [Diltiazem 12hr Er]) 120 mg PO DAILY FLYNN Non-Formulary Medication (Fluticasone/Vilanterol) 1 dose INH DAILY FLYNN Non-Formulary Medication (Mirtazapine) 30 mg PO BEDTIME FLYNN Non-Formulary Medication (Roflumilast) 500 mcg PO DAILY FLYNN Non-Formulary Medication (Rosuvastatin Calcium [Rosuvastatin Calcium]) 40 mg PO DAILY FLYNN Sertraline HCl (Zoloft) 200 mg PO DAILY FLYNN Sodium Chloride (Saline Flush) 10 ml FLUSH ASDIRECTED PRN PRN Reason: Keep Vein Open Last Admin: 03/06/19 11:23 Dose: 10 ml Sodium Chloride (Saline Flush) 2.5 ml FLUSH ASDIRECTED PRN PRN Reason: Keep Vein Open Last Admin: 03/06/19 11:23 Dose: 2.5 ml Assessment/Plan Comment:: 68 yo male admitted for pneumonia. Pneumonia/sepsis: I Suspect gram negative torey infection.Due to recent multiple admissions and intubation this past month will treat with broad spectrum antibiotics. Treating with Vancomycin, Zosyn and doxycycline. Will continue Hydration with IV fluids, cultures are pending. A.fib: continue Diltazem and Eliquis, monitor on telemetry.
[2019-03-06] MEDS: Acetaminophen/HYDROcodone 325-5 MG Tab PO PRN (14:55)
[2019-03-06] MEDS: Sodium Chloride 0.9% 1,000 ML IV SCH ×2 (15:02→21:58)
[2019-03-06] MEDS: Doxycycline 100 MG in Sodium Chloride 0.9% 100 ML IV SCH (15:55)
[2019-03-06] MEDS: HYDROmorphone 1 MG/ML Syringe IVPUSH PRN (17:24)
[2019-03-06] MEDS: LORazepam 1 MG Tab PO SCH (17:25)
[2019-03-06] MEDS: Apixaban 5 MG Tab PO SCH (20:51)
[2019-03-06] MEDS ORDERED: Mirtazapine 15 MG Tab PO SCH (21:00)
[2019-03-07] MEDS: Acetaminophen/HYDROcodone 325-5 MG Tab PO PRN
[2019-03-07] MEDS: Piperacillin/Tazobactam 3.375 GM in Sodium Chloride 0.9% 50 ML IV SCH ×2 (00:02→05:59)
[2019-03-07] MEDS: Doxycycline 100 MG in Sodium Chloride 0.9% 100 ML IV SCH (03:20)
[2019-03-07 05:52] LABS: BLOOD UREA NITROGEN,BUN 22 mg/dL (7.0-18.0); CARBON DIOXIDE,CO2 35.4 mmol/L (21.0-32.0); CHLORIDE,CL 104 mmol/L (98-107); GLUCOSE RANDOM 143 mg/dL (74-106); POTASSIUM,K 4.5 mmol/L (3.5-5.1); SODIUM,NA 140 mmol/L (136-148)
[2019-03-07] MEDS: LORazepam 1 MG Tab PO SCH ×2 (05:55)
--- NOTE | 2019-03-07 06:14 | CR ---
INDICATION: Increasing shortness of breath. TECHNIQUE: AP portable chest x-ray 2 views. FINDINGS: Lungs are hyperinflated consistent with COPD. Healing or old right-sided rib fractures. Moderate amount of infiltrate is fairly dense in the left mid and lower lung is slightly denser in the left lower lobe posterior medially. Findings are nonspecific but in the appropriate clinical setting would be consistent with a pneumonia. Small left pleural effusion. Cannot exclude small right pleural effusion. Heart size normal. Emphysema in the upper lungs. Followup chest x-ray is recommended to ensure the opacity in the right lower lobe completely resolves without residual underlying mass or neoplasm. Remainder negative. Dictated by Yaya Kim MD @ Mar 07 2019 6:13AM Signed by Dr. Yaya Kim @ Mar 07 2019 6:13AM
[2019-03-07] MEDS ORDERED: predniSONE 20 MG Tab PO SCH (06:29)
--- NOTE | 2019-03-07 06:40 | PCM.PN ---
- General Info Date of Service: 03/07/19 - Review of Systems Systems Review Comment:: this morning patient had increase in shortness of breath was notice by nursing to be tripoding and requring more oxygen to keep sats at 90%. - Patient Data Vitals - Most Recent: Last Vital Signs Temp 36.8 C 03/07/19 04:00 Pulse 118 H 03/07/19 04:00 Resp 23 H 03/07/19 04:00 BP 120/63 03/07/19 04:00 Pulse Ox 93 L 03/07/19 04:20 Weight - Most Recent: 55.384 kg I&O - Last 24 Hours: Intake & Output 03/06/19 03/06/19 03/07/19 14:59 22:59 06:59 Intake Total 250 1000 2433 Output Total 0 200 Balance 250 1000 2233 Lab Results Last 24 Hours: Laboratory Results - last 24 hr 03/06/19 03/06/19 03/06/19 Range/Units 11:10 11:10 11:10 WBC 27.47 H (4.0-11.0) K/uL RBC 3.59 L (4.50-5.90) M/uL Hgb 10.5 L (13.0-17.0) g/dL Hct 34.6 L (38.0-50.0) % MCV 96.4 (80.0-98.0) fL MCH 29.2 (27.0-32.0) pg MCHC 30.3 L (31.0-37.0) g/dL RDW Std Deviation 51.0 (28.0-62.0) fl RDW Coeff of Charly 15 (11.0-15.0) % Plt Count 459 H (150-400) K/uL MPV 9.40 (7.40-12.00) fL Neut % (Auto) 92.5 H (48.0-80.0) % Lymph % (Auto) 2.0 L (16.0-40.0) % Tucker % (Auto) 5.5 (0.0-15.0) % Eos % (Auto) 0.0 (0.0-7.0) % Baso % (Auto) 0.0 (0.0-1.5) % Neut # (Auto) 25.4 H (1.4-5.7) K/uL Lymph # (Auto) 0.5 L (0.6-2.4) K/uL Tucker # (Auto) 1.5 H (0.0-0.8) K/uL Eos # (Auto) 0.0 (0.0-0.7) K/uL Baso # (Auto) 0.0 (0.0-0.1) K/uL Nucleated RBC % 0.0 /100WBC Nucleated RBCs # 0 K/uL INR 1.02 ABG pH (7.35-7.45) ABG pCO2 (35-45) mmHG ABG pO2 (75-100) mmHG ABG HCO3 (22-26) mEq/L ABG Total CO2 ABG Base Excess (-2.0-2.0) Lactate (0.20-2.00) mmol/L Sodium 140 (136-148) mmol/L Potassium 4.1 (3.5-5.1) mmol/L Chloride 101 (98-107) mmol/L Carbon Dioxide 35.9 H (21.0-32.0) mmol/L BUN 25 H (7.0-18.0) mg/dL Creatinine 1.2 (0.8-1.3) mg/dL Est Cr Clr Drug Dosing 42.71 mL/min Estimated GFR (MDRD) > 60.0 ml/min Glucose 147 H (74-106) mg/dL Calcium 8.9 (8.5-10.1) mg/dL Total Bilirubin 0.7 (0.2-1.0) mg/dL AST 181 H (15-37) IU/L ALT 123 H (14-63) IU/L Alkaline Phosphatase 70 (46-116) U/L Troponin I < 0.050 (0.000-0.056) ng/mL Total Protein 6.4 (6.4-8.2) g/dL Albumin 2.1 L (3.4-5.0) g/dL Globulin 4.3 H (2.6-4.0) g/dL Albumin/Globulin Ratio 0.5 L (0.9-1.6) Lipase (73-393) U/L 03/06/19 03/06/19 03/06/19 Range/Units 11:10 11:15 11:17 WBC (4.0-11.0) K/uL RBC (4.50-5.90) M/uL Hgb (13.0-17.0) g/dL Hct (38.0-50.0) % MCV (80.0-98.0) fL MCH (27.0-32.0) pg MCHC (31.0-37.0) g/dL RDW Std Deviation (28.0-62.0) fl RDW Coeff of Charly (11.0-15.0) % Plt Count (150-400) K/uL MPV (7.40-12.00) fL Neut % (Auto) (48.0-80.0) % Lymph % (Auto) (16.0-40.0) % Tucker % (Auto) (0.0-15.0) % Eos % (Auto) (0.0-7.0) % Baso % (Auto) (0.0-1.5) % Neut # (Auto) (1.4-5.7) K/uL Lymph # (Auto) (0.6-2.4) K/uL Tucker # (Auto) (0.0-0.8) K/uL Eos # (Auto) (0.0-0.7) K/uL Baso # (Auto) (0.0-0.1) K/uL Nucleated RBC % /100WBC Nucleated RBCs # K/uL INR ABG pH 7.433 (7.35-7.45) ABG pCO2 57 H (35-45) mmHG ABG pO2 79 (75-100) mmHG ABG HCO3 38 H (22-26) mEq/L ABG Total CO2 35.4 ABG Base Excess 11.9 H (-2.0-2.0) Lactate 1.7 (0.20-2.00) mmol/L Sodium (136-148) mmol/L Potassium (3.5-5.1) mmol/L Chloride (98-107) mmol/L Carbon Dioxide (21.0-32.0) mmol/L BUN (7.0-18.0) mg/dL Creatinine (0.8-1.3) mg/dL Est Cr Clr Drug Dosing mL/min Estimated GFR (MDRD) ml/min Glucose (74-106) mg/dL Calcium (8.5-10.1) mg/dL Total Bilirubin (0.2-1.0) mg/dL AST (15-37) IU/L ALT (14-63) IU/L Alkaline Phosphatase (46-116) U/L Troponin I (0.000-0.056) ng/mL Total Protein (6.4-8.2) g/dL Albumin (3.4-5.0) g/dL Globulin (2.6-4.0) g/dL Albumin/Globulin Ratio (0.9-1.6) Lipase 321 (73-393) U/L 03/07/19 03/07/19 03/07/19 Range/Units 04:55 05:10 05:10 WBC 23.17 H (4.0-11.0) K/uL RBC 2.76 L (4.50-5.90) M/uL Hgb 8.1 L (13.0-17.0) g/dL Hct 26.6 L (38.0-50.0) % MCV 96.4 (80.0-98.0) fL MCH 29.3 (27.0-32.0) pg MCHC 30.5 L (31.0-37.0) g/dL RDW Std Deviation 51.0 (28.0-62.0) fl RDW Coeff of Charly 15 (11.0-15.0) % Plt Count 364 (150-400) K/uL MPV 9.20 (7.40-12.00) fL Neut % (Auto) 93.4 H (48.0-80.0) % Lymph % (Auto) 2.7 L (16.0-40.0) % Tucker % (Auto) 3.5 (0.0-15.0) % Eos % (Auto) 0.4 (0.0-7.0) % Baso % (Auto) 0.0 (0.0-1.5) % Neut # (Auto) 21.6 H (1.4-5.7) K/uL Lymph # (Auto) 0.6 (0.6-2.4) K/uL Tucker # (Auto) 0.8 (0.0-0.8) K/uL Eos # (Auto) 0.1 (0.0-0.7) K/uL Baso # (Auto) 0.0 (0.0-0.1) K/uL Nucleated RBC % 0.0 /100WBC Nucleated RBCs # 0 K/uL INR ABG pH 7.283 L (7.35-7.45) ABG pCO2 77 H (35-45) mmHG ABG pO2 63 L (75-100) mmHG ABG HCO3 37 H (22-26) mEq/L ABG Total CO2 35.7 ABG Base Excess 8.3 H (-2.0-2.0) Lactate (0.20-2.00) mmol/L Sodium 140 (136-148) mmol/L Potassium 4.5 (3.5-5.1) mmol/L Chloride 104 (98-107) mmol/L Carbon Dioxide 35.4 H (21.0-32.0) mmol/L BUN 22 H (7.0-18.0) mg/dL Creatinine 0.9 (0.8-1.3) mg/dL Est Cr Clr Drug Dosing 60.68 mL/min Estimated GFR (MDRD) > 60.0 ml/min Glucose 143 H (74-106) mg/dL Calcium 7.8 L (8.5-10.1) mg/dL Total Bilirubin (0.2-1.0) mg/dL AST (15-37) IU/L ALT (14-63) IU/L Alkaline Phosphatase (46-116) U/L Troponin I (0.000-0.056) ng/mL Total Protein (6.4-8.2) g/dL Albumin (3.4-5.0) g/dL Globulin (2.6-4.0) g/dL Albumin/Globulin Ratio (0.9-1.6) Lipase (73-393) U/L Perico Results Last 24 Hours: Microbiology 03/06/19 14:45 Gram Stain - Preliminary Sputum - Expectorated Med Orders - Current: Current Medications Hydrocodone Bitart/Acetaminophen ([place] 325-5 Mg) 1 tab PO TID PRN PRN Reason: Pain Last Admin: 03/07/19 00:00 Dose: 1 tab Albuterol/Ipratropium (Duoneb 3.0-0.5 Mg/3 Ml) 3 ml NEB Q4HRRT PRN PRN Reason: Shortness Of Breath/wheezing Last Admin: 03/07/19 03:23 Dose: 3 ml Apixaban (Eliquis) 5 mg PO BID [facility] Last Admin: 03/06/19 20:51 Dose: 5 mg Diltiazem HCl (Cardizem Cd) 120 mg PO DAILY [facility] Hydromorphone HCl (Dilaudid) 1 mg IVPUSH Q3H PRN PRN Reason: Pain Last Admin: 03/06/19 17:24 Dose: 1 mg Piperacillin Sod/Tazobactam (Sod 3.375 gm/ Sodium Chloride) 50 mls @ 100 mls/ hr IV Q6H [facility] Last Admin: 03/07/19 05:59 Dose: 100 mls/hr Vancomycin HCl 1 gm/ Sodium (Chloride) 250 mls @ 250 mls/hr IV Q24H FLYNN Pantoprazole Sodium 40 mg/ (Sodium Chloride) 10 mls @ 300 mls/hr IV Q24H [facility] Last Admin: 03/06/19 15:14 Dose: 300 mls/hr Sodium Chloride (Normal Saline) 1,000 mls @ 125 mls/hr IV ASDIRECTED [facility] Last Admin: 03/06/19 21:58 Dose: 125 mls/hr Doxycycline Hyclate 100 mg/ (Sodium Chloride) 100 mls @ 100 mls/hr IV Q12H [facility] Last Admin: 03/07/19 03:20 Dose: 100 mls/hr Lorazepam (Ativan) 1 mg PO QID [facility] Last Admin: 03/07/19 05:55 Dose: 1 mg Mirtazapine (Remeron) 30 mg PO BEDTIME [facility] Last Admin: 03/06/19 20:51 Dose: 30 mg Ondansetron HCl (Zofran) 4 mg IVPUSH Q4H PRN PRN Reason: Nausea Last Admin: 03/06/19 16:02 Dose: 4 mg Fluticasone/ (Vilanterol) 1 each INH DAILY [facility] Roflumilast 500 Mcg 1 each PO DAILY [facility] Prednisone (Prednisone) 60 mg PO WITHBREAKFAST [facility] Promethazine HCl (Phenergan) 25 mg IM Q6H PRN PRN Reason: Nausea Rosuvastatin Calcium (Crestor) 40 mg PO DAILY [facility] Sertraline HCl (Zoloft) 200 mg PO DAILY [facility] Sodium Chloride (Saline Flush) 10 ml FLUSH ASDIRECTED PRN PRN Reason: Keep Vein Open Last Admin: 03/06/19 11:23 Dose: 10 ml Sodium Chloride (Saline Flush) 2.5 ml FLUSH ASDIRECTED PRN PRN Reason: Keep Vein Open Last Admin: 03/06/19 11:23 Dose: 2.5 ml Discontinued Medications Albuterol/Ipratropium (Duoneb 3.0-0.5 Mg/3 Ml) 3 ml NEB ONETIME ONE Stop: 03/06/19 11:10 Last Admin: 03/06/19 11:22 Dose: 3 ml Sodium Chloride (Normal Saline) 1,000 mls @ 100 mls/hr IV STAT ONE Stop: 03/06/19 21:17 Last Admin: 03/06/19 11:32 Dose: 100 mls/hr Vancomycin HCl 1 gm/ Sodium (Chloride) 250 mls @ 166 mls/hr IV ONETIME ONE Stop: 03/06/19 13:28 Last Admin: 03/06/19 12:27 Dose: 166 mls/hr Lorazepam (Ativan) 1 mg IVPUSH ONETIME ONE Stop: 03/06/19 11:13 Last Admin: 03/06/19 11:23 Dose: 1 mg Morphine Sulfate (Morphine) 2 mg IVPUSH Q4H PRN PRN Reason: Pain (severe 7-10) Stop: 03/07/19 14:31 Vancomycin HCl (Pharmacy To Dose - Vancomycin) 1 dose .XX ASDIRECTED FLYNN - Exam General: Alert, Oriented Neck: Supple Lungs: Decreased Breath Sounds Cardiovascular: Irregular Rhythm, Tachycardia GI/Abdominal Exam: Soft, Non-Tender Extremities: Non-Tender, No Pedal Edema Skin: Warm, Dry, Intact Neurological: No New Focal Deficit - Problem List Review Problem List Initiated/Reviewed/Updated: Yes - My Orders Last 24 Hours: My Active Orders 03/06/19 12:30 Piperacillin/Tazobactam [Piperacil-Tazobact] 3.375 gm Sodium Chloride 0.9% [ Normal Saline] 50 ml IV Q6H 03/06/19 13:09 Telemetry Monitoring [Cardiac Monitoring] [RC] . DIRECTED 03/06/19 14:29 Acetaminophen/HYDROcodone [[place] 325-5 MG] 1 tab PO TID PRN 03/06/19 14:30 Pantoprazole [ProTONIX IV] 40 mg Sodium Chloride 0.9% [Normal Saline] 10 ml IV Q24H 03/06/19 14:31 Oxygen Therapy [RC] PRN Up ad Kari [RC] ASDIRECTED VTE/DVT Education [RC] PER UNIT ROUTINE Vital Signs [RC] Q1H Albuterol/Ipratropium [DuoNeb 3.0-0.5 MG/3 ML] 3 ml NEB Q4HRRT PRN Ondansetron [Zofran] 4 mg IVPUSH Q4H PRN Promethazine [Phenergan] 25 mg IM Q6H PRN Sequential Compression Device [OM.PC] Per Unit Routine Resuscitation Status Routine 03/06/19 14:32 Antiembolic Devices [RC] PER UNIT ROUTINE RT Aerosol Therapy [RC] ASDIRECTED 03/06/19 14:41 Patient Old Record [Obtain Past Medical Record] [OM.PC] Routine 03/06/19 14:45 CULTURE SPUTUM + SMEAR [RM] Stat Sodium Chloride 0.9% [Normal Saline] 1,000 ml IV ASDIRECTED 03/06/19 14:46 Doxycycline [Vibramycin] 100 mg Sodium Chloride 0.9% [Normal Saline] 100 ml IV Q12H 03/06/19 17:11 HYDROmorphone [Dilaudid] 1 mg IVPUSH Q3H PRN 03/06/19 18:00 LORazepam [Ativan] 1 mg PO QID 03/06/19 21:00 Apixaban [Eliquis] 5 mg PO BID Mirtazapine [Remeron] 30 mg PO BEDTIME 03/06/19 Breakfast Regular Diet [DIET] 03/07/19 05:20 Transfer Patient (Change bed) [ADT] Routine 03/07/19 05:22 BIPAP [RT BiPAP/CPAP] [RC] ASDIRECTED 03/07/19 06:29 predniSONE 60 mg PO WITHBREAKFAST 03/07/19 09:00 Diltiazem [Cardizem CD] 120 mg PO DAILY Patient's Own Medication [Ptom] 1 each INH DAILY Patient's Own Medication [Ptom] 1 each PO DAILY Rosuvastatin [Crestor] 40 mg PO DAILY Sertraline [Zoloft] 200 mg PO DAILY 03/07/19 12:30 Vancomycin [Vancocin] 1 gm Sodium Chloride 0.9% [Normal Saline (AdvBag)] 250 ml IV Q24H 03/08/19 05:11 BASIC METABOLIC PANEL,BMP [CHEM] AM CBC WITH AUTO DIFF [HEME] AM 03/09/19 05:11 BASIC METABOLIC PANEL,BMP [CHEM] AM CBC WITH AUTO DIFF [HEME] AM 03/09/19 12:00 VANCOMYCIN TROUGH [CHEM] Routine - Plan Plan:: 68 yo male admitted for pneumonia. Pneumonia/sepsis: Continue Vancomycin, Zosyn and doxycycline, cultures are pending. awaiting medical records from past hospitalizations Acute hypercapnic respiratory failure: patient transferred to ICU to initiate BIPAP, will continue to monitor COPD: duonebs, prednisone A.fib: continue Diltazem and Eliquis, monitor on telemetry.
--- NOTE | 2019-03-07 07:37 | PN ---
THC Physician - Brief Progress [id number]/21/2019 07:25[facility] Yasmine Floyd, [place] - BETSY (MELIDA) - BETSY ICUKADEN HENRIQUEZDate of Service 03/07/2019 07:25HPI/Events o f Note eICU Brief Admission [id number] M Severe copd in and out of hospital including ICU on a vent ove r the past 3 weeks. Now readmitted with severe exacerbation of his COPD and being empirically treated for PNA. Due to his need for continuous bipap and resp distress he was placed in the ICUSign out rec ieved from Dr Ng CameraCachectic man, appears older than stated ageOn Bipap 03/22 generating TV 3 50-450 RR 18Sats 97% Fio2 35%HR 113 BP 104/62Imaging reviewed- almost no subcutaneous tissue, severe emphysematous lungs, new consolidation left base from prev CXRWCC 23hh 8.1/26.6BUN/Creat 22/0.9Recomm endAgree with empiric broad spectrum antibioticsBipap supportSteroids and NebsOn elequisPPI for GI pr ophPalliative care appropriate, frequent exacerbator apperas to be end stage lung diseaseIntervention s Major-Respiratory failure - evaluation and managementIntermediate-Communication with other [facility] providers and/or family
[2019-03-07] MEDS: Diltiazem 120 MG Cap.CD PO SCH ×2 (08:06→08:19)
[2019-03-07] MEDS: predniSONE 20 MG Tab PO SCH ×2 (08:07→08:19)
[2019-03-07] MEDS: Sertraline 100 MG Tab PO SCH ×2 (08:07→09:28)
[2019-03-07] MEDS: Apixaban 5 MG Tab PO SCH (08:07)
[2019-03-07] MEDS: Rosuvastatin 10 MG Tab PO SCH ×2 (08:07→09:28)
[2019-03-07] MEDS: HYDROmorphone 1 MG/ML Syringe IVPUSH PRN (09:52)
--- NOTE | 2019-03-07 10:38 | PCM.DCSUM1 ---
Discharge Summary - Discharge Data Discharge Date: 03/07/19 Discharge Disposition: Against Medical Advice 07 Condition: Critical - Referral to Home Health Primary Care Physician: PCP Unobtainable - Patient Summary/Data Hospital Course: 68 yo male who was admitted for health care associated pneumonia, acute on chronic respiratory failure with end stage COPD. Patient had been in and out of [facility] for treatment of pneumonia and COPD for the past month. According to records we obtain the critical care physicians in [place] had recommended Hospice and mcc placement. The patient has declined and went home. Since being at home he continued to decline with worsening shortness of breath, fever and chills. He was seen in the ED and noted to have a dense left lung infiltrate on chest x-ray. His white count was 27,000. On admission he was noted to have decreased breath sounds but was not in any acute distress. He was requiring 3 liters of oxygen to keep sats above 90%. Patient was admitted to the medical floor and started on Vancomycin, Zosyn, and doxycline for treatment of pneumonia including possible gram negative torey respiratory infection. Patient early this morning started to developed respiratory distress and he was placed on bipap and transferred to the ICU. I discussed his poor prognoses with end stage COPD and patient and family reported they were never told about the severity of his disease process before. Patient then decided that he did not want any further therapy. Patient no longer wanted Bipap and his condition rapidly deteriorated. I recommended hospice consultation but patient and wanted to go home immediately. I told patient and that he would likely not make it home before expiring and that if the could please let us do palliative care as I did not expect him to last more than an hour off oxygen or Bipap. We called pastoral care to help residence counselor. Patient did not want to in a hospital. His got his home oxygen tank and placed him in a wheel chair and they left the unit AMA. - Discharge Plan Home Medications: Home Meds Acetaminophen/HYDROcodone [[place] 325-5 MG] 1 tab PO TID PRN 07/18/17 [History] Fluticasone/Vilanterol [Breo Ellipta 200-25 Mcg INH] 1 dose INH DAILY 07/18/17 [ History] Cyclobenzaprine [Flexeril] 10 mg PO TID 02/15/19 [History] Apixaban [Eliquis] 5 mg PO BID 03/06/19 [History] Diltiazem HCl [Diltiazem ER] 120 mg PO DAILY 03/06/19 [History] LORazepam 1 mg PO QID 03/06/19 [History] Levalbuterol HCl [Xopenex] 1 ampule NEB Q6H PRN 03/06/19 [History] Mirtazapine 30 mg PO BEDTIME 03/06/19 [History] Prochlorperazine [Compazine] 5 mg PO QID PRN 03/06/19 [History] Roflumilast [Daliresp] 500 mcg PO DAILY 03/06/19 [History] Rosuvastatin Calcium 40 mg PO DAILY 03/06/19 [History] Sertraline HCl 200 mg PO DAILY 03/06/19 [History] Tiotropium [place] [Spiriva Respimat] 2 puff INH DAILY 03/06/19 [History] Forms: ED Department Discharge Referrals: PCP,Unobtain [Primary Care Provider] - - Discharge Summary/Plan Comment DC Time >30 min.: No - Patient Data Vitals - Most Recent: Last Vital Signs Temp 36.8 C 03/07/19 06:00 Pulse 119 H 03/07/19 09:00 Resp 27 H 03/07/19 09:00 BP 126/80 03/07/19 09:00 Pulse Ox 96 03/07/19 09:00 Weight - Most Recent: 55.384 kg I&O - Last 24 hours: Intake & Output 03/06/19 03/07/19 03/07/19 22:59 06:59 14:59 Intake Total 1000 2433 Output Total 0 200 Balance 1000 2233 Lab Results - Last 24 hrs: Laboratory Results - last 24 hr 03/06/19 03/06/19 03/06/19 Range/Units 11:10 11:10 11:10 WBC 27.47 H (4.0-11.0) K/uL RBC 3.59 L (4.50-5.90) M/uL Hgb 10.5 L (13.0-17.0) g/dL Hct 34.6 L (38.0-50.0) % MCV 96.4 (80.0-98.0) fL MCH 29.2 (27.0-32.0) pg MCHC 30.3 L (31.0-37.0) g/dL RDW Std Deviation 51.0 (28.0-62.0) fl RDW Coeff of Charly 15 (11.0-15.0) % Plt Count 459 H (150-400) K/uL MPV 9.40 (7.40-12.00) fL Neut % (Auto) 92.5 H (48.0-80.0) % Lymph % (Auto) 2.0 L (16.0-40.0) % Garvin % (Auto) 5.5 (0.0-15.0) % Eos % (Auto) 0.0 (0.0-7.0) % Baso % (Auto) 0.0 (0.0-1.5) % Neut # (Auto) 25.4 H (1.4-5.7) K/uL Lymph # (Auto) 0.5 L (0.6-2.4) K/uL Garvin # (Auto) 1.5 H (0.0-0.8) K/uL Eos # (Auto) 0.0 (0.0-0.7) K/uL Baso # (Auto) 0.0 (0.0-0.1) K/uL Nucleated RBC % 0.0 /100WBC Nucleated RBCs # 0 K/uL INR 1.02 ABG pH (7.35-7.45) ABG pCO2 (35-45) mmHG ABG pO2 (75-100) mmHG ABG HCO3 (22-26) mEq/L ABG Total CO2 ABG Base Excess (-2.0-2.0) Lactate (0.20-2.00) mmol/L Sodium 140 (136-148) mmol/L Potassium 4.1 (3.5-5.1) mmol/L Chloride 101 (98-107) mmol/L Carbon Dioxide 35.9 H (21.0-32.0) mmol/L BUN 25 H (7.0-18.0) mg/dL Creatinine 1.2 (0.8-1.3) mg/dL Est Cr Clr Drug Dosing 42.71 mL/min Estimated GFR (MDRD) > 60.0 ml/min Glucose 147 H (74-106) mg/dL Calcium 8.9 (8.5-10.1) mg/dL Total Bilirubin 0.7 (0.2-1.0) mg/dL AST 181 H (15-37) IU/L ALT 123 H (14-63) IU/L Alkaline Phosphatase 70 (46-116) U/L Troponin I < 0.050 (0.000-0.056) ng/mL Total Protein 6.4 (6.4-8.2) g/dL Albumin 2.1 L (3.4-5.0) g/dL Globulin 4.3 H (2.6-4.0) g/dL Albumin/Globulin Ratio 0.5 L (0.9-1.6) Lipase (73-393) U/L 03/06/19 03/06/19 03/06/19 Range/Units 11:10 11:15 11:17 WBC (4.0-11.0) K/uL RBC (4.50-5.90) M/uL Hgb (13.0-17.0) g/dL Hct (38.0-50.0) % MCV (80.0-98.0) fL MCH (27.0-32.0) pg MCHC (31.0-37.0) g/dL RDW Std Deviation (28.0-62.0) fl RDW Coeff of Charly (11.0-15.0) % Plt Count (150-400) K/uL MPV (7.40-12.00) fL Neut % (Auto) (48.0-80.0) % Lymph % (Auto) (16.0-40.0) % Garvin % (Auto) (0.0-15.0) % Eos % (Auto) (0.0-7.0) % Baso % (Auto) (0.0-1.5) % Neut # (Auto) (1.4-5.7) K/uL Lymph # (Auto) (0.6-2.4) K/uL Garvin # (Auto) (0.0-0.8) K/uL Eos # (Auto) (0.0-0.7) K/uL Baso # (Auto) (0.0-0.1) K/uL Nucleated RBC % /100WBC Nucleated RBCs # K/uL INR ABG pH 7.433 (7.35-7.45) ABG pCO2 57 H (35-45) mmHG ABG pO2 79 (75-100) mmHG ABG HCO3 38 H (22-26) mEq/L ABG Total CO2 35.4 ABG Base Excess 11.9 H (-2.0-2.0) Lactate 1.7 (0.20-2.00) mmol/L Sodium (136-148) mmol/L Potassium (3.5-5.1) mmol/L Chloride (98-107) mmol/L Carbon Dioxide (21.0-32.0) mmol/L BUN (7.0-18.0) mg/dL Creatinine (0.8-1.3) mg/dL Est Cr Clr Drug Dosing mL/min Estimated GFR (MDRD) ml/min Glucose (74-106) mg/dL Calcium (8.5-10.1) mg/dL Total Bilirubin (0.2-1.0) mg/dL AST (15-37) IU/L ALT (14-63) IU/L Alkaline Phosphatase (46-116) U/L Troponin I (0.000-0.056) ng/mL Total Protein (6.4-8.2) g/dL Albumin (3.4-5.0) g/dL Globulin (2.6-4.0) g/dL Albumin/Globulin Ratio (0.9-1.6) Lipase 321 (73-393) U/L 03/07/19 03/07/19 03/07/19 Range/Units 04:55 05:10 05:10 WBC 23.17 H (4.0-11.0) K/uL RBC 2.76 L (4.50-5.90) M/uL Hgb 8.1 L (13.0-17.0) g/dL Hct 26.6 L (38.0-50.0) % MCV 96.4 (80.0-98.0) fL MCH 29.3 (27.0-32.0) pg MCHC 30.5 L (31.0-37.0) g/dL RDW Std Deviation 51.0 (28.0-62.0) fl RDW Coeff of Charly 15 (11.0-15.0) % Plt Count 364 (150-400) K/uL MPV 9.20 (7.40-12.00) fL Neut % (Auto) 93.4 H (48.0-80.0) % Lymph % (Auto) 2.7 L (16.0-40.0) % Garvin % (Auto) 3.5 (0.0-15.0) % Eos % (Auto) 0.4 (0.0-7.0) % Baso % (Auto) 0.0 (0.0-1.5) % Neut # (Auto) 21.6 H (1.4-5.7) K/uL Lymph # (Auto) 0.6 (0.6-2.4) K/uL Garvin # (Auto) 0.8 (0.0-0.8) K/uL Eos # (Auto) 0.1 (0.0-0.7) K/uL Baso # (Auto) 0.0 (0.0-0.1) K/uL Nucleated RBC % 0.0 /100WBC Nucleated RBCs # 0 K/uL INR ABG pH 7.283 L (7.35-7.45) ABG pCO2 77 H (35-45) mmHG ABG pO2 63 L (75-100) mmHG ABG HCO3 37 H (22-26) mEq/L ABG Total CO2 35.7 ABG Base Excess 8.3 H (-2.0-2.0) Lactate (0.20-2.00) mmol/L Sodium 140 (136-148) mmol/L Potassium 4.5 (3.5-5.1) mmol/L Chloride 104 (98-107) mmol/L Carbon Dioxide 35.4 H (21.0-32.0) mmol/L BUN 22 H (7.0-18.0) mg/dL Creatinine 0.9 (0.8-1.3) mg/dL Est Cr Clr Drug Dosing 60.68 mL/min Estimated GFR (MDRD) > 60.0 ml/min Glucose 143 H (74-106) mg/dL Calcium 7.8 L (8.5-10.1) mg/dL Total Bilirubin (0.2-1.0) mg/dL AST (15-37) IU/L ALT (14-63) IU/L Alkaline Phosphatase (46-116) U/L Troponin I (0.000-0.056) ng/mL Total Protein (6.4-8.2) g/dL Albumin (3.4-5.0) g/dL Globulin (2.6-4.0) g/dL Albumin/Globulin Ratio (0.9-1.6) Lipase (73-393) U/L HANS Results - Last 24 hrs: Microbiology 03/06/19 14:45 Gram Stain - Preliminary Sputum - Expectorated Med Orders - Current: Current Medications Discontinued Medications Hydrocodone Bitart/Acetaminophen ([place] 325-5 Mg) 1 tab PO TID PRN PRN Reason: Pain Last Admin: 03/07/19 00:00 Dose: 1 tab Albuterol/Ipratropium (Duoneb 3.0-0.5 Mg/3 Ml) 3 ml NEB ONETIME ONE Stop: 03/06/19 11:10 Last Admin: 03/06/19 11:22 Dose: 3 ml Albuterol/Ipratropium (Duoneb 3.0-0.5 Mg/3 Ml) 3 ml NEB Q4HRRT PRN PRN Reason: Shortness Of Breath/wheezing Last Admin: 03/07/19 03:23 Dose: 3 ml Apixaban (Eliquis) 5 mg PO BID [facility] Last Admin: 03/07/19 08:07 Dose: 5 mg Diltiazem HCl (Cardizem Cd) 120 mg PO DAILY [facility] Last Admin: 03/07/19 08:19 Dose: 120 mg Hydromorphone HCl (Dilaudid) 1 mg IVPUSH Q3H PRN PRN Reason: Pain Last Admin: 03/07/19 09:52 Dose: 1 mg Sodium Chloride (Normal Saline) 1,000 mls @ 100 mls/hr IV STAT ONE Stop: 03/06/19 21:17 Last Admin: 03/06/19 11:32 Dose: 100 mls/hr Vancomycin HCl 1 gm/ Sodium (Chloride) 250 mls @ 166 mls/hr IV ONETIME ONE Stop: 03/06/19 13:28 Last Admin: 03/06/19 12:27 Dose: 166 mls/hr Piperacillin Sod/Tazobactam (Sod 3.375 gm/ Sodium Chloride) 50 mls @ 100 mls/ hr IV Q6H [facility] Last Admin: 03/07/19 05:59 Dose: 100 mls/hr Vancomycin HCl 1 gm/ Sodium (Chloride) 250 mls @ 250 mls/hr IV Q24H [facility] Pantoprazole Sodium 40 mg/ (Sodium Chloride) 10 mls @ 300 mls/hr IV Q24H [facility] Last Admin: 03/06/19 15:14 Dose: 300 mls/hr Sodium Chloride (Normal Saline) 1,000 mls @ 125 mls/hr IV ASDIRECTED [facility] Last Admin: 03/06/19 21:58 Dose: 125 mls/hr Doxycycline Hyclate 100 mg/ (Sodium Chloride) 100 mls @ 100 mls/hr IV Q12H [facility] Last Admin: 03/07/19 03:20 Dose: 100 mls/hr Lorazepam (Ativan) 1 mg IVPUSH ONETIME ONE Stop: 03/06/19 11:13 Last Admin: 03/06/19 11:23 Dose: 1 mg Lorazepam (Ativan) 1 mg PO QID [facility] Last Admin: 03/07/19 05:55 Dose: 1 mg Mirtazapine (Remeron) 30 mg PO BEDTIME [facility] Last Admin: 03/06/19 20:51 Dose: 30 mg Morphine Sulfate (Morphine) 2 mg IVPUSH Q4H PRN PRN Reason: Pain (severe 7-10) Stop: 03/07/19 14:31 Ondansetron HCl (Zofran) 4 mg IVPUSH Q4H PRN PRN Reason: Nausea Last Admin: 03/06/19 16:02 Dose: 4 mg Fluticasone/ (Vilanterol) 1 each INH DAILY [facility] Last Admin: 03/07/19 09:28 Dose: Not Given Roflumilast 500 Mcg 1 each PO DAILY [facility] Last Admin: 03/07/19 09:28 Dose: Not Given Prednisone (Prednisone) 60 mg PO WITHBREAKFAST [facility] Last Admin: 03/07/19 07:42 Dose: Not Given Prednisone (Prednisone) 60 mg PO WITHBREAKFAST [facility] Last Admin: 03/07/19 08:19 Dose: 60 mg Promethazine HCl (Phenergan) 25 mg IM Q6H PRN PRN Reason: Nausea Rosuvastatin Calcium (Crestor) 40 mg PO DAILY [facility] Last Admin: 03/07/19 09:28 Dose: Not Given Sertraline HCl (Zoloft) 200 mg PO DAILY [facility] Last Admin: 03/07/19 09:28 Dose: Not Given Sodium Chloride (Saline Flush) 10 ml FLUSH ASDIRECTED PRN PRN Reason: Keep Vein Open Last Admin: 03/06/19 11:23 Dose: 10 ml Sodium Chloride (Saline Flush) 2.5 ml FLUSH ASDIRECTED PRN PRN Reason: Keep Vein Open Last Admin: 03/06/19 11:23 Dose: 2.5 ml Vancomycin HCl (Pharmacy To Dose - Vancomycin) 1 dose .XX ASDIRECTED [facility]
== END 2019-03-07 10:06 | disposition left against medical advice (07) | DRG 193 ==
LOC: MW.ED 11:07 → MW.MS 12:17 → MW.ICU 03-07 05:46
PROVIDERS: ADMIT Internal Medicine; ATTEND Internal Medicine
PROC: 5A09357 Assistance with Respiratory Ventilation, Less than 24 Consecutive Hours, Continuous Positive Airway Pressure (ICD-10-PCS; principal; 2019-03-07)
DX: J18.1 Lobar pneumonia, unspecified organism (principal); R07.9 Chest pain, unspecified; J96.22 Acute and chronic respiratory failure with hypercapnia; R10.84 Generalized abdominal pain; J44.0 Chronic obstructive pulmonary disease with (acute) lower respiratory infection; I10 Essential (primary) hypertension; K57.90 Diverticulosis of intestine, part unspecified, without perforation or abscess without bleeding; J44.1 Chronic obstructive pulmonary disease with (acute) exacerbation; H54.7 Unspecified visual loss; Z88.6 Allergy status to analgesic agent; F41.9 Anxiety disorder, unspecified; I48.91 Unspecified atrial fibrillation; B96.89 Other specified bacterial agents as the cause of diseases classified elsewhere; Z79.01 Long term (current) use of anticoagulants; M19.90 Unspecified osteoarthritis, unspecified site; Z85.118 Personal history of other malignant neoplasm of bronchus and lung; Z88.1 Allergy status to other antibiotic agents; Z88.5 Allergy status to narcotic agent; Z88.8 Allergy status to other drugs, medicaments and biological substances; Z79.890 Hormone replacement therapy; Z79.899 Other long term (current) drug therapy; Z87.891 Personal history of nicotine dependence
CPT/HCPCS: 36415; 36600; 71045; 80053; 82803; 83605; 83690; 84484; 85025; 85610; 87040 ×2; 94640; J2060; J7040; 80048; 87070; 87205; 93005; 94660; 96361; 96374; 99285-25; A9270-GY; C9113; J1170; J2405; J2543; J3370; J3490; J7030; J7050; J7620-GY